=== PATIENT | female | born 1950 | race Caucasian/White ===

== ENCOUNTER 2017-02-02 23:06 | Inpatient (IN) | payer MEDICAID, OTHER ==
[~2017-02-02] VITALS: Ht 157.5 cm; Wt 102.3 kg
[2017-02-02 23:08] VITALS: Ht 157.5 cm; Wt 102.3 kg
[2017-02-02] MEDS ORDERED: SODIUM CHLORIDE 0.9% 1L BAG IV* STA (23:17)
[2017-02-02] MEDS ORDERED: CEFEPIME 2GM/50 ML (PMX) 50 ML IVPB STA (23:17)
[2017-02-03] VITALS (9 sets, daily range): BP systolic 126–154; BP diastolic 61–70; PULSE 57–74; RESP 16–21; TEMP 97.1
[2017-02-03] LABS: ADD SCAN DIFF NO
[2017-02-03 00:01] LABS: BASOPHILS % 0.2 % (0.0-2.0); EOSINOPHILS # 0.1 10^3/ul (0.0-0.5); EOSINOPHILS % 0.7 % (0.0-7.0); HEMATOCRIT 24.3 % (37.0-47.0); HEMOGLOBIN 7.3 g/dl (12.0-16.0); LYMPHOCYTES # 1.4 10^3/ul (0.8-2.9); LYMPHOCYTES % 6.8 % (15.0-51.0); MEAN CORPUSCULAR HEMOGLOBIN 31.6 pg (29.0-33.0); MEAN CORPUSCULAR VOLUME 105.2 fl (82.0-101.0); MEAN PLATELET VOLUME 8.9 fl (7.4-10.4); MONOCYTE # 0.9 10^3/ul (0.3-0.9); MONOCYTES % 4.3 % (0.0-11.0); NEUTROPHIL # 17.6 10^3/ul (1.6-7.5); NEUTROPHILS % 86.6 % (39.0-77.0); NUCLEATED RED BLOOD CELLS # 0.1 10^3/ul (0.0-0.0); NUCLEATED RED BLOOD CELLS% 0.3 /100WBC (0.0-0.0); PLATELET COUNT 647 10^3/UL (140-415); RED BLOOD COUNT 2.31 10^6/ul (4.20-5.40); RED CELL DISTRIBUTION WIDTH 15.5 % (11.5-14.5); WHITE BLOOD COUNT 20.3 10^3/ul (4.8-10.8)
[2017-02-03 00:17] LABS: INR 1.2; PROTIME 15.3 Sec (12.2-14.2); PT RATIO 1.2
[2017-02-03 00:18] LABS: PARTIAL THROMBOPLASTIN TIME 33.7 Sec (25.0-35.0)
[2017-02-03 00:19] LABS: CALCIUM 8.8 mg/dl (8.4-10.2); CREATININE 3.01 mg/dl (0.44-1.00); POTASSIUM 3.8 mmol/L (3.5-5.1)
[2017-02-03 00:20] LABS: ALBUMIN 3.3 g/dl (3.3-4.9); ALBUMIN/GLOBULIN RATIO 0.76; TOTAL PROTEIN 7.6 g/dl (6.1-8.1)
[2017-02-03 00:30] LABS: TROPONIN-I 0.017 ng/ml (0.00-0.12)
--- NOTE | 2017-02-03 01:02 | RADRPT ---
PROCEDURE: XR Chest. CLINICAL INDICATION: Cough. Sepsis. TECHNIQUE: Single frontal view. COMPARISON: None. FINDINGS: The lungs are clear. The heart is enlarged. There is no pleural effusion. There is no pneumothorax. IMPRESSION: 1. Cardiomegaly. 2. Clear lungs. RPTAT: QQ .Rell Chavez MD, MD Date Time Electronically viewed and signed by .Rell Chavez MD, MD on 02/03/2017 01:01 .R/
[2017-02-03 01:21] LABS: AADO2 Arterial 54.1 mmHg (7.0-24.0); Allen Test ACCEPTAB; Arterial Base Excess 6.7 mmol/L (-3.0-3); Arterial COHb 0.7 % (0.0-3.0); Arterial Fraction of Oxyhgb 95.2 % (93.0-99.0); Arterial HCO3 31.3 mmol/L (22.0-26.0); Arterial MetHb 0.4 % (0.0-1.5); Arterial Total Hemglobin 7.9 g/dl (12.0-18.0); MODE NASAL CANNULA
[2017-02-03] MEDS ORDERED: SOD CHLORIDE 0.9% 250 ML IV ONE (01:48)
[2017-02-03] MEDS ORDERED: VANCOMYCIN 1 GM (PMX) 250 ML IVPB SCH (02:00)
--- NOTE | 2017-02-03 02:11 | RADRPT ---
PROCEDURE: CT Brain without contrast. CLINICAL INDICATION: Visual disturbance. TECHNIQUE: A CT of the brain without contrast was performed utilizing axial sections from the skul l base through the vertex. The patient was scanned without intravenous contrast enhancement. Sagitta l and coronal reformatted images were obtained using the data from the axial images. Total exam DLP is 720.23 mGy-cm. CTDIvol is 45.01 mGy. One or more of the following dose reduction techniques were used: Automated exposure control, adjustment of the mA and/or kV according to patient size, use of iterative reconstruction technique. COMPARISON: None available. FINDINGS: There is normal vincent-white matter differentiation. There is enlargement of the ventricles and subarachnoid spaces consistent with atrophy. There is decreased attenuation of the periventricular white matter consistent with microangiopathic ischemic change. There is no intracranial hemorrhage or space-occupying lesion. There are vascular calcifications consistent with atherosclerosis. There is no skull fracture or lytic lesion. IMPRESSION: 1. Atrophy. 2. Microangiopathic ischemic change. 3. Atherosclerosis. 4. No intracranial hemorrhage. 5. Otherwise unremarkable noncontrast CT scan of the brain. RPTAT: QQ .Rell Chavez MD, Date Time Electronically viewed and signed by .Rell Chavez MD, on 02/03/2017 02:11 .R/
[2017-02-03 02:12] LABS: URINE BLOOD (Dip) POC 2+ (NEGATIVE)
[2017-02-03 02:25] LABS: RETICULOCYTE COUNT % 2.8 % (0.5-1.5)
[2017-02-03 02:37] LABS: IRON 16 ug/dl (35-150)
[2017-02-03 02:47] LABS: TOTAL IRON BINDING CAPACITY 148 ug/dl (241-421)
--- NOTE | 2017-02-03 02:53 | RADRPT ---
PROCEDURE: CT Abdomen and pelvis without contrast. CLINICAL INDICATION: Abdominal pain. TECHNIQUE: CT scan of the abdomen and pelvis was performed on a multi-detector high-resolution CT scanner. Contiguous axial images were obtained from the lung bases to the ischial tuberosities wit hout intravenous contrast. Coronal and sagittal reformatted images were also obtained. Images were reviewed on the PACS workstation. One or more of the following dose reduction techniques were used: - Automated exposure control. - Adjustment of the mA and/or kV according to patient size. - Use of iterative reconstruction technique. Exam CTD/vol = 21.47 mGy. Total exam DLP = 1251.97 mGy-cm. COMPARISON: None. FINDINGS: Evaluation of the lung bases demonstrates mild bibasilar atelectasis. The heart is mildly enlarged. There is mild pulmonary venous congestion. There is a calcified granuloma within the right lower lobe. Abdomen: The liver is normal in size. There is no focal mass or dilatation of the biliary tree. T he gallbladder is not distended. There is mild gallbladder wall thickening. The spleen, pancreas a nd bilateral adrenal glands are within normal limits. Bilateral kidneys are normal in size with no contour deforming mass identified. There are renal vascular calcifications bilaterally. There is n o radiopaque ureteral calculus identified. There is no hydronephrosis or hydroureter. There is charanjit ateral perinephric stranding. There is no retroperitoneal adenopathy. The abdominal aorta is of no rmal caliber with scattered atherosclerotic calcifications. There is no abnormal bowel wall thickening or distension. There is no bowel obstruction or free air . A normal appendix is identified. There is no diverticulosis or diverticulitis. There is no asci gay. Pelvis: The bladder is unremarkable. The uterus and adnexa are within normal limits. There is mil d presacral stranding. There is no significant pelvic adenopathy or free fluid. There is subcutaneo us stranding consistent with anasarca. Evaluation of the osseous structures demonstrates no suspicious lytic or blastic lesion. IMPRESSION: Mild nonspecific gallbladder wall thickening. Clinical correlation is recommended and further evalu ation can be made by ultrasound. Mild cardiomegaly and pulmonary venous congestion. Mild bibasilar atelectasis. Extensive vascular calcifications reflective of atherosclerosis. Mild nonspecific presacral stranding. Anasarca. .Eyal Cruz MD, MD Date Time Electronically viewed and signed by .Eyal Cruz MD, MD on 02/03/2017 02:53 .T/
--- NOTE | 2017-02-03 05:46 | ERA ---
ER Documentation Chief Complaint Date/Time DATE: 02/03/17 TIME: 05:35 Chief Complaint BIBA RA81, ALOC since 2100 after dialysis HPI This 66-year-old female sent for being more altered than normal, reportedly after dialysis. Patient states that she had dialysis yesterday with no complications. She does state that she feels short of breath since the day before yesterday but does not have chest pain she does have pain along her left foot where she has a chronic wound. States that she does not feel confused. She does feel more tired and weaker than usual. She denies any focal areas of weakness. Shortly after her arrival of the doctor involved with the [facility] facility called me and stated that the reason the patient is was sent because she had decreased vision. I spoke with the patient and her who state that she has had blurry vision for a long time now and was told it was secondary to her diabetes. She states this is been going on for weeks. ROS All systems reviewed and are negative except as per history of present illness. Allergies Allergies: Uncoded Allergies: PENICILLIN (Allergy, Intermediate, rash, 02/03/17) PMhx/Soc History of Surgery: Yes (R upper arm AVF placement, RBKA) Anesthesia Reaction: No (AUGUSTIN) Hx Neurological Disorder: Yes (diabetic neuropathy) Hx Respiratory Disorders: No Hx Cardiac Disorders: Yes (CHF, HTN) Hx Psychiatric Problems: No Hx Miscellaneous Medical Probl: Yes (ESRD, on dialysis) Hx Alcohol Use: No Hx Substance Use: No Hx Tobacco Use: No Smoking Status: Never smoker Physical Exam Vitals Vital Signs Date Time Temp Pulse Resp B/P Pulse Ox O2 Delivery O2 Flow Rate FiO2 02/03/17 05:00 61 16 140/56 93 Nasal Cannula 2.0 02/03/17 04:00 62 17 139/48 98 Nasal Cannula 3.0 02/03/17 00:30 77 20 156/46 97 Room Air 02/02/17 23:08 101.7 77 18 131/63 86 Physical Exam Const: [] Head: Atraumatic Eyes: Normal Conjunctiva ENT: Normal External Ears, Nose and Mouth. Neck: Full range of motion..~ No meningismus. Resp: Clear to auscultation bilaterally Cardio: Regular rate and rhythm, no murmurs Abd: Soft, non tender, non distended. Normal bowel sounds Skin: No petechiae or rashes Back: No midline or flank tenderness Ext: No cyanosis, or edema Neur: Awake and alert Psych: Normal Mood and Affect Result Diagram: 02/02/17 2335 02/02/17 2335 Results 24 hrs Laboratory Tests Test 02/02/17 23:35 02/03/17 01:02 02/03/17 02:13 02/03/17 02:30 White Blood Count 20.310^3/ul Red Blood Count 2.3110^6/ul Hemoglobin 7.3g/dl Hematocrit 24.3% Mean Corpuscular Volume 105.2fl Mean Corpuscular Hemoglobin 31.6pg Mean Corpuscular Hemoglobin Concent 30.0g/dl Red Cell Distribution Width 15.5% Platelet Count 85976^3/UL Mean Platelet Volume 8.9fl Neutrophils % 86.6% Lymphocytes % 6.8% Monocytes % 4.3% Eosinophils % 0.7% Basophils % 0.2% Nucleated Red Blood Cells % 0.3/100WBC Neutrophils # 17.610^3/ul Lymphocytes # 1.410^3/ul Monocytes # 0.910^3/ul Eosinophils # 0.110^3/ul Basophils # 0.010^3/ul Nucleated Red Blood Cells # 0.110^3/ul Absolute Reticulocyte Count 0.064X10^6 Percent Reticulocyte Count 2.8% Prothrombin Time 15.3Sec Prothrombin Time Ratio 1.2 INR International Normalized Ratio 1.20 Activated Partial Thromboplast Time 33.7Sec Sodium Level 136mmol/L Potassium Level 3.8mmol/L Chloride Level 94mmol/L Carbon Dioxide Level 30mmol/L Anion Gap 16 Blood Urea Nitrogen 33mg/dl Creatinine 3.01mg/dl Glucose Level 298mg/dl Lactic Acid Level 1.6mmol/L 1.4mmol/L Calcium Level 8.8mg/dl Iron Level 16ug/dl Total Iron Binding Capacity 148ug/dl Percent Iron Saturation 11% SAT Ferritin 1160.0ng/ml Total Bilirubin 0.0mg/dl Direct Bilirubin 0.00mg/dl Indirect Bilirubin 0.0mg/dl Aspartate Amino Transf (AST/SGOT) 19IU/L Alanine Aminotransferase (ALT/SGPT) 15IU/L Alkaline Phosphatase 260IU/L Troponin I 0.017ng/ml B-Type Natriuretic Peptide 403795RM/ML Total Protein 7.6g/dl Albumin 3.3g/dl Globulin 4.30g/dl Albumin/Globulin Ratio 0.76 Blood Gas Specimen Source Blood arterial Arterial Blood Date Drawn 02/03/2017 1:15:17 AM Arterial Blood pH (Temp corrected) 7.457 Arterial Blood pCO2 (Temp correct) 45.3mmhg Arterial Blood pO2 (Temp corrected) 84.8mmHG Arterial Blood HCO3 31.3mmol/L Arterial Blood Base Excess 6.7mmol/L Arterial Blood Oxygen Saturation 96.3mmHG Ron Test ACCEPTAB Arterial Blood Gas Puncture Site Right Radial Arterial Blood Carboxyhemoglobin 0.7% Arterial Blood Methemoglobin 0.4% Blood Gas A-a O2 Differential 54.1mmHg Oxyhemoglobin Percent 95.2% Total Hemoglobin 7.9g/dl Blood Gas Temperature 37.0C Blood Gas Modality NASAL CANNULA FiO2 27.0% Blood Gas Critical Value Read Back Taina PIERRE D.O Blood Gas Notified Whom MM Blood Gas Notified Time 02/03/2017 1:21:14 AM Bedside Urine pH (LAB) 5.5 Bedside Urine Protein (LAB) 2+ Bedside Urine Glucose (UA) Negative Bedside Urine Ketones (LAB) Trace Bedside Urine Blood 2+ Bedside Urine Nitrite (LAB) Negative Bedside Urine Leukocyte Esterase (L Trace Test 02/03/17 03:13 Lactic Acid Level 1.5mmol/L Current Medications Medications (Trade) Dose Ordered Sig/Ariel Route PRN Reason Start Time Stop Time Status Last Admin Dose Admin Sodium Chloride 3170 ml 3,170 ml BOLUS OVER 2 HOURS STAT IV* 02/02/17 23:17 02/02/17 23:19 DC 02/03/17 01:11 Cefepime HCl 50 ml @ 100 mls/hr ONCE STAT IVPB 02/02/17 23:17 02/02/17 23:46 DC 02/03/17 01:11 Vancomycin HCl 250 ml @ 125 mls/hr ONCE IVPB 02/03/17 02:00 02/03/17 03:59 DC 02/03/17 02:02 Sodium Chloride (NS) 250 ml @ 0 mls/hr Q0M ONCE IV 02/03/17 01:48 02/03/17 01:55 DC 02/03/17 01:48 Morphine Sulfate (morphine) 2 mg ONCE ONCE IV 02/03/17 06:00 02/03/17 06:01 DC 02/03/17 05:50 Ondansetron HCl (Zofran Inj) 4 mg ER BRIDGE PRN IV NAUSEA AND/OR VOMITING 02/03/17 06:30 02/04/17 06:29 Acetaminophen (Tylenol Tab) 650 mg ER BRIDGE PRN PO MILD PAIN/FEVER 02/03/17 06:30 02/04/17 06:29 Procedures/MDM Sepsis secondary to cellulitis from left lower extremity foot wound. Patient is also anemic requiring transfusion but denies any sources of GI bleeding or dark stools. She is also hypoxic on arrival at 86% but responded well to oxygen therapy. Currently there is no pneumonia on chest x-ray. If there is an x-ray negative lung infection she is covered with cefepime and vancomycin. She began to receive an IV fluid bolus of 30 cc/kg. I start this fdc when when her hemoglobin returned and she was in need of transfusion as she would likely become even more fluid overloaded if she would receive the full bolus of greater than 3 L. Blood will cause great enough volume expansion where 3 L of fluid would harm this patient in spite of sepsis criteria is deleterious to the patient's condition. Head CT was obtained to look for any cerebral cause or mass possibly causing the patient's blurred vision 4 weeks. None was found. CT abdomen pelvis showed only a mildly distended gallbladder. She has no right upper quadrant tenderness or pain currently. He was given 2 mg of morphine for her left lower extremity pain. Patient will be admitted to telemetry however her insurance requires her to be transferred to [place]. Admitting and registration are unable to reach the insurance company on multiple calls for a time long enough that they say the patient will now go to panel doctor. I spoke with Dr. Schwab will be admitting the patient to telemetry. EKG interpretation: Normal sinus rhythm rate of 79, normal axis, no ST or T- wave changes concerning for acute ischemia lunchroom monitor interpretation: Normal sinus rhythm without arrhythmia Chest x-ray interpretation: I see no acute process, no pulmonary edema, no pneumothorax, no infiltrates, no fractures CT abdomen pelvis interpretation: I see no acute process, I see no abnormal fat stranding, no obstruction, no free air, no fractures. Radiologist mentions mild gallbladder wall thickening. CT head interpretation :I see no acute process, no hemorrhage, no mass-effect no midline shift, no fracture Departure Diagnosis: Primary Impression: Sepsis due to cellulitis Additional Impressions: Left leg cellulitis Hypoxia Symptomatic anemia Hyperglycemia due to type 2 diabetes mellitus Condition: Serious JANINA PIERRE DO February 03, 2017 05:46
[2017-02-03] MEDS ORDERED: morphine 2 MG INJ IV ONE (06:00)
[2017-02-03] MEDS ORDERED: ONDANSETRON 4 MG INJ IV PRN (06:30)
[2017-02-03] MEDS ORDERED: ACETAMINOPHEN 325 MG TAB PO PRN ×2 (06:30→09:30)
[2017-02-03] MEDS ORDERED: VANCOMYCIN IV PER PHARMACY XX SCH (09:30)
[2017-02-03] MEDS ORDERED: HYDROCODONE/APAP (5/325) TAB PO PRN (09:30)
[2017-02-03] MEDS ORDERED: LORAZEPAM 2 MG INJ IV PRN (09:30)
[2017-02-03] MEDS ORDERED: NACL 0.9% 3 ML SYG IV SCH (09:30)
[2017-02-03] MEDS ORDERED: GLUCOSE GEL 15 GRAM TUBE BUCCAL PRN (10:00)
[2017-02-03] MEDS ORDERED: GLUCAGON 1 MG INJ IM PRN (10:00)
[2017-02-03] MEDS ORDERED: GLUCOSE GEL 15 GRAM TUBE PO PRN ×2 (10:00)
[2017-02-03] MEDS ORDERED: DEXTROSE 50% 50 ML SYRINGE IV PRN ×2 (10:00)
[2017-02-03] MEDS ORDERED: VANCOMYCIN 1 GM in NS 250 ML IVPB SCH (10:30)
--- NOTE | 2017-02-03 10:35 | CONS ---
Date/Time of Note Date/Time of Note DATE: 02/03/17 TIME: 10:35 Assessment/Plan Assessment/Plan Chief Complaint/Hosp Course ID PROGRESS NOTE ABX DAY # 2=> Vanco IV + Cefepime HOSPITAL COURSE * 66 yo F w/PMHx DMII w/ polyneuropathies, HTN, HLD, ESRD-HD, PAD, RLEXT-BKA, admit from HD unit 02/02/17 with AMS, fevers 101.7, leukocytosis WBC @ 20.3, with acute on chronic LLEXT cellulitis with pain, in addition to acute SOB. * UA (+)Trace LeukEsterase w/hematuria 2+ * BNP elevated 128,000 in setting S.Creatinine 3.0 * Started on Vanco + Cefepime after BCx & urine obtained DIAGNOSTIC IMAGING * 02/03/17 CXR: IMPRESSION:1. Cardiomegaly. 2. Clear lungs. * 02/03/17: CT Brain: IMPRESSION:1. Atrophy.2. Microangiopathic ischemic change.3. Atherosclerosis.4. No intracranial hemorrhage.5. Otherwise unremarkable noncontrast CT scan of the brain. * 02/03/17 CT ABD: IMPRESSION: * Mild nonspecific gallbladder wall thickening. Clinical correlation is recommended and further evaluation can be made by ultrasound. * Mild cardiomegaly and pulmonary venous congestion. * Mild bibasilar atelectasis. * Extensive vascular calcifications reflective of atherosclerosis. * Mild nonspecific presacral stranding. * Anasarca. PHYSICAL EXAMINATION: GENERAL: Morbid obese Lithuanian speaking F, lethargic, awakens to painful stimuli and c/o left foot pain HEENT: Unremarkable NECK: Trach-> midline CHEST: Equal chest rise bilaterally, supplemental O2, CTA anterior ABDOMEN: Soft, obese EXTREMITIES: R-BKA< Left foot w/chronic venous stasis hyperpigmentation changes , foot ulcer, toe ulcer, hyperkeratotic nails SKIN: Warm, dry ID ASSESSMENT: 66 yo F w/PMHx HTN, HLD, DMII w/polyneuropathies, PAD, hx of RLEXT BKA, ESRD-HD admitted with: 1. Sepsis criteria on admission = fevers 101.7, AMS, Leukocytosis 20.3 + acute LLEXT cellulitis 2. LLEXT cellulitis w/chronic left foot ulcer, toe ulcer, necrotic heel ulcer 3. Anemia w/FeSo4 deficiency 4. DM II w/painful peripheral neuropathy 5. PAD 6 Mild respiratory distress related to fluid overloaded state: (+)anasarca w/ mild pulm edema 7. ESRD -> HD via AVF 8. Possible early UTI w/trace leukocytosis on UA. 2+ RBCs ABX ALLERGIES: NKDA CURRENT ABX: # 2=> Vanco IV + Cefepime ID RECOMMENDATIONS: 1. Continue current ABX . 2. Left foot X-ray r/o Osteomyelitis 3. F/U on micro pending 4. MRSA Nares screen ordered * Thank you, will follow. . Problems: Consultation Date/Type/Reason Admit Date/Time February 03, 2017 at 06:21 Initial Consult Date Exam/Review of Systems Vital Signs Vitals Vital Signs Date Time Temp Pulse Resp B/P Pulse Ox O2 Delivery O2 Flow Rate FiO2 02/03/17 09:18 57 02/03/17 09:03 97.9 21 126/61 99 02/03/17 07:41 Nasal Cannula 2.0 Intake and Output 02/02/17 02/02/17 02/03/17 15:00 23:00 07:00 Intake Total 965 ml Balance 965 ml Results Result Diagram: 02/02/17 2335 02/02/17 2335 Results 24 hrs Laboratory Tests Test 02/02/17 23:35 02/03/17 01:02 02/03/17 02:13 02/03/17 02:30 White Blood Count 20.3 H Red Blood Count 2.31 L Hemoglobin 7.3 L Hematocrit 24.3 L Mean Corpuscular Volume 105.2 H Mean Corpuscular Hemoglobin 31.6 Mean Corpuscular Hemoglobin Concent 30.0 L Red Cell Distribution Width 15.5 H Platelet Count 647 H Mean Platelet Volume 8.9 Neutrophils % 86.6 H Lymphocytes % 6.8 L Monocytes % 4.3 Eosinophils % 0.7 Basophils % 0.2 Nucleated Red Blood Cells % 0.3 H Neutrophils # 17.6 H Lymphocytes # 1.4 Monocytes # 0.9 Eosinophils # 0.1 Basophils # 0.0 Nucleated Red Blood Cells # 0.1 H Absolute Reticulocyte Count 0.064 Percent Reticulocyte Count 2.8 H Prothrombin Time 15.3 H Prothrombin Time Ratio 1.2 INR International Normalized Ratio 1.20 Activated Partial Thromboplast Time 33.7 Sodium Level 136 Potassium Level 3.8 Chloride Level 94 L Carbon Dioxide Level 30 Anion Gap 16 Blood Urea Nitrogen 33 H Creatinine 3.01 H Glucose Level 298 H Lactic Acid Level 1.6 1.4 Calcium Level 8.8 Iron Level 16 L Total Iron Binding Capacity 148 L Percent Iron Saturation 11 L Ferritin 1160.0 H Total Bilirubin 0.0 L Direct Bilirubin 0.00 Indirect Bilirubin 0.0 Aspartate Amino Transf (AST/SGOT) 19 Alanine Aminotransferase (ALT/SGPT) 15 Alkaline Phosphatase 260 H Troponin I 0.017 B-Type Natriuretic Peptide 472764 H Total Protein 7.6 Albumin 3.3 Globulin 4.30 H Albumin/Globulin Ratio 0.76 Blood Gas Specimen Source Blood arterial Arterial Blood Date Drawn 02/03/2017 1:15:17 AM Arterial Blood pH (Temp corrected) 7.457 H Arterial Blood pCO2 (Temp correct) 45.3 H Arterial Blood pO2 (Temp corrected) 84.8 Arterial Blood HCO3 31.3 H Arterial Blood Base Excess 6.7 H Arterial Blood Oxygen Saturation 96.3 Ron Test ACCEPTAB Arterial Blood Gas Puncture Site Right Radial Arterial Blood Carboxyhemoglobin 0.7 Arterial Blood Methemoglobin 0.4 Blood Gas A-a O2 Differential 54.1 H Oxyhemoglobin Percent 95.2 Total Hemoglobin 7.9 L Blood Gas Temperature 37.0 Blood Gas Modality NASAL CANNULA FiO2 27.0 Blood Gas Critical Value Read Back Taina PIERRE D.O Blood Gas Notified Whom MM Blood Gas Notified Time 02/03/2017 1:21:14 AM Bedside Urine pH (LAB) 5.5 Bedside Urine Protein (LAB) 2+ H Bedside Urine Glucose (UA) Negative Bedside Urine Ketones (LAB) Trace H Bedside Urine Blood 2+ H Bedside Urine Nitrite (LAB) Negative Bedside Urine Leukocyte Esterase (L Trace H Test 02/03/17 03:13 Lactic Acid Level 1.5 Medications Medications Current Medications Lorazepam (Ativan) 0.5 mg Q6H PRN IV ANXIETY; Start 02/03/17 at 09:30 Acetaminophen (Tylenol Tab) 650 mg Q6H PRN PO PAIN LEVEL 1-3 OR FEVER; Start at 09:30 Acetaminophen/ Hydrocodone Bitart ([place] (5/325)) 1 tab Q6H PRN PO PAIN LEVEL 4 -6; Start 02/03/17 at 09:30 Morphine Sulfate (morphine) 2 mg Q4H PRN IV PAIN LEVEL 7-10; Start 02/03/17 at 09:30 Famotidine (Pepcid) 20 mg Q24H PO ; Start 02/03/17 at 21:00 Hydralazine HCl 10 mg 10 mg Q6H PRN IV SBP>160; Start 02/03/17 at 09:30 Cefepime HCl (Maxipime 1gm/50 ml (Pmx)) 50 ml @ 100 mls/hr Q24H IVPB ; Start at 21:00 Insulin Glargine (Lantus) 21 unit DAILY@20 SC ; Start 02/03/17 at 20:00 Diagnostic Test (Pha) (Accu-Chek) 1 ea 02 XX ; Start 02/04/17 at 02:00 Miscellaneous Information 1 ea NOTE XX ; Start 02/03/17 at 10:00 Glucose (Glutose) 15 gm Q15M PRN PO DECREASED GLUCOSE; Start 02/03/17 at 10:00 Glucose (Glutose) 22.5 gm Q15M PRN PO DECREASED GLUCOSE; Start 02/03/17 at 10: 00 Dextrose (D50w Syringe) 25 ml Q15M PRN IV DECREASED GLUCOSE; Start 02/03/17 at 10:00 Dextrose (D50w Syringe) 50 ml Q15M PRN IV DECREASED GLUCOSE; Start 02/03/17 at 10:00 Glucagon (Glucagen) 1 mg Q15M PRN IM DECREASED GLUCOSE; Start 02/03/17 at 10:00 Glucose 15 gm 15 gm Q15M PRN BUCCAL DECREASED GLUCOSE; Start 02/03/17 at 10:00 Vancomycin HCl (Vancocin) 250 ml @ 125 mls/hr NOW IVPB ; Start 02/03/17 at 10: 30; Stop 02/03/17 at 18:00 JOHNATHAN HASKINS NP February 03, 2017 10:35
[2017-02-03] MEDS ORDERED: SEVE800T10 PO (11:52)
[2017-02-03] MEDS ORDERED: SIMV20TA2 PO (11:53)
[2017-02-03] MEDS ORDERED: BISA10SU55 RC ×2 (11:59)
[2017-02-03] MEDS ORDERED: HYDR-3672 PO (11:59)
[2017-02-03] MEDS ORDERED: ACET-141 PO (11:59)
[2017-02-03] MEDS ORDERED: HYDR-3010 PO (11:59)
[2017-02-03] MEDS ORDERED: CLOP75TA28 PO (12:16)
[2017-02-03] MEDS ORDERED: HYDR-3671 PO (12:16)
[2017-02-03] MEDS ORDERED: NOVO3I SC (12:16)
[2017-02-03] MEDS ORDERED: ISON300T72 PO (12:16)
[2017-02-03] MEDS ORDERED: CLON-379 PO (12:16)
[2017-02-03] MEDS ORDERED: AMLO-147 PO (12:16)
[2017-02-03] MEDS ORDERED: PANT40TA4 PO (12:16)
[2017-02-03] MEDS ORDERED: DOCU-159 PO (12:16)
[2017-02-03] MEDS ORDERED: PYRI50TA80 PO (12:16)
[2017-02-03] MEDS ORDERED: BISA-57 PO (12:16)
[2017-02-03] MEDS ORDERED: FOLI-49 PO (12:16)
[2017-02-03] MEDS ORDERED: NEPH PO (12:16)
[2017-02-03] MEDS ORDERED: HEP30MU30 SUBCUTANE (12:16)
[2017-02-03] MEDS ORDERED: CARV6.2579 PO (12:16)
[2017-02-03] MEDS ORDERED: LOSA100T7 PO (12:16)
[2017-02-03] MEDS ORDERED: POLY17PO6 PO (12:16)
[2017-02-03] MEDS: LOSARTAN 50 MG TAB PO SCH (12:47)
[2017-02-03] MEDS: SEVELAMER 800 MG TAB PO SCH ×2 (12:47→18:10)
[2017-02-03] MEDS: ISONIAZID 300 MG TAB PO SCH (12:48)
[2017-02-03] MEDS: INSULIN ASPART [NOVOLOG] 3 ML PEN SC SCH ×5 (12:55→20:13)
[2017-02-03] MEDS: SOD FERRIC GLUC COMPLX 125 MG in SOD CHLORIDE 0.9% 100 ML IVPB SCH (13:40)
[2017-02-03 14:49] LABS: ANION GAP 16 (8-16); BLOOD UREA NITROGEN 40 mg/dl (7-20); CALCIUM 8.7 mg/dl (8.4-10.2); CARBON DIOXIDE 28 mmol/L (21-31); CHLORIDE 96 mmol/L (97-110); CREATININE 3.55 mg/dl (0.44-1.00); GLUCOSE 184 mg/dl (70-220); MAGNESIUM 1.9 mg/dl (1.7-2.5); POTASSIUM 3.8 mmol/L (3.5-5.1); SODIUM 136 mmol/L (135-144)
[2017-02-03 14:53] LABS: CREATINE KINASE < 20 IU/L (23-200)
--- NOTE | 2017-02-03 14:54 | HP ---
DATE OF ADMISSION: 02/03/2017 TIME OF EVALUATION: 9 a.m. REASON FOR ADMISSION: Altered level of consciousness. Worsening left lower extremity wound. CONSULTATIONS: 1. Dr. Rafael Friedman, Nephrology. 2. Dr. Mason Wheeler, Infectious Disease. 3. Dr. Magdaleno Ortiz, Podiatry. HISTORY OF PRESENT ILLNESS: This is a 66-year-old group home resident who is bedridden with multiple comorbidities including end-stage renal disease on hemodialysis, diabetes mellitus, congestive heart failure, essential hypertension, and left lower extremity nonhealing diabetic wound who was brought to the emergency room because of altered level of consciousness. The patient got hemodialysis as scheduled on Saturday. The patient was feeling short of breath towards the evening of 02/02/2017. The patient was also hallucinating as per the patient's family who was at the bedside. The patient is not the best historian. Hence, I was unable to elicit further information from the patient. All the information was obtained by review of the patient's chart as well as by talking to the patient's family who was at the bedside. In the emergency room, the patient was noticed to have significant leukocytosis with a WBC of 20.3. The patient was also noticed to be anemic with a hemoglobin and hematocrit of 7.3 and 24.2 respectively. The patient underwent a chest x-ray that showed cardiomegaly. The patient's CT scan of the chest showed cardiomegaly and pulmonary venous congestion. The patient's brain CT scan was negative for any acute intracranial findings. The patient underwent a blood gas analysis in the emergency room that showed no significant hypoxia. The patient was treated with IV vancomycin and IV cefepime in the emergency room. The patient was transfused with 2 units of PRBC. PAST MEDICAL HISTORY: End-stage renal disease on hemodialysis, diabetes mellitus, congestive heart failure, essential hypertension. Left lower extremity nonhealing diabetic foot wound. PAST SURGICAL HISTORY: Left upper extremity AV fistula placement. Right below- knee amputation. LONGTERM MEDICATIONS: 1. Heparin 5000 units subcutaneous b.i.d. 2. Insulin aspart per sliding scale. 3. Isoniazid p.o. daily. 4. Losartan 100 mg p.o. daily. 5. Nephrovite 1 tablet p.o. daily. 6. Protonix 40 mg p.o. p.r.n. GERD. 7. MiraLax 17 grams p.o. constipation b.i.d. 8. Renagel 3200 mg p.o. t.i.d. with meals. 9. Simvastatin 5 mg p.o. at bedtime. 10. Dulcolax 5 mg p.o. daily p.r.n. constipation. 11. Hydralazine 50 mg p.o. p.r.n. for SBP greater than 160 mmHg. 12. Benadryl one tablet p.o. p.r.n. itching. 13. Hydralazine 25 mg p.o. t.i.d. ALLERGIES: PENICILLIN. SOCIAL HISTORY: The patient lives in a alf facility. No recent history of tobacco, alcohol or illicit drug use. The patient is more or less bedridden. REVIEW OF SYSTEMS: Negative other than what is mentioned in the history of present illness. PHYSICAL EXAMINATION: VITAL SIGNS: Temperature 97.1, pulse is 99, pulse rate 57, respiratory rate 21 , blood pressure 126/60, oxygen saturation 99% on low flow O2. GENERAL: This is an obese female lying in bed in no apparent distress. HEENT: Head normocephalic and atraumatic. Eyes: Anicteric sclerae. Conjunctivae clear. ENT: Nasal septum is midline. Oral mucosa is dry. NECK: Supple. No JVD noticed. RESPIRATORY: Bilaterally diminished breath sounds. No adventitious breath sounds heard. No use of accessory muscles of respiration. CARDIAC: Regular rate and rhythm. S1 and S2 heard. ABDOMEN: Soft, nontender and nondistended. Bowel sounds hypoactive in all 4 quadrants. GENITOURINARY: Deferred. EXTREMITIES: Left foot wound with dressings on the left foot. Left toes onychomycosis. Right below-knee amputation. NEUROLOGIC: The patient is awake, alert and oriented x1. SKIN: Multiple skin lesions. Scaly with dry scabs at different stages of healing. LABORATORY AND DIAGNOSTIC DATA: WBC 20.3, hemoglobin 7.3, hematocrit 24.3, platelet count 647. Sodium 136, potassium 3.8, chloride 94, carbon dioxide 30, anion gap 16, BUN 33, creatinine 3.0, glucose 209, calcium 8.8, alkaline phosphatase 260, troponin I 0.017. BNP 142761. PT 15.3, INR 1.03, PTT 33.7. Blood gas that was done on low flow O2, pH 7.457, pCO2 of 45.3, pO2 84.8, bicarbonate 31.3 oxygen saturation 96.3, base excess 6.7. Urinalysis: Urine protein 2+, urine leukocyte esterase trace, urine nitrate negative. IMPRESSION: This is a 66-year-old female who is a group home resident with multiple comorbidities who was brought to the emergency room with multiple complaints who was found evidence of sepsis, most probably secondary to underlying left foot infected wound, who will be admitted here for further treatment and evaluation. ASSESSMENT AND PLAN: 1. Sepsis, most probably secondary to underlying left foot infected wound. No evidence of septic shock. The patient will be started on empiric antibiotics. Olivarez cultures will be obtained. An infectious disease consult will be obtained. 2. End-stage renal disease on hemodialysis. The patient will be followed by nephrology. The patient most probably requires hemodialysis today since the patient got 2 units of PRBC for her underlying anemia. 3. Macrocytic anemia. Symptomatic. No evidence of any acute blood loss. The patient was already transfused with 2 units of PRBC. Stool for OB will be obtained. The patient's iron panel showing iron deficiency. The patient will be started on iron supplements. 4. Type 2 diabetes. The patient will be started on sliding scale insulin along with basal insulin and Lantus insulin. 5. Congestive heart failure. The patient will be continued on her cardiac medications. A 2D echocardiogram will be obtained to evaluate left ventricular ejection fraction and evaluate for any wall motion abnormalities. 6. Dyslipidemia. The patient will be started on statins. 7. Multiple skin lesions. Etiology unclear. Wound care consult will be ordered. 8. Acute encephalopathy. Most probably toxic metabolic in origin provided to underlying sepsis. We will monitor. Brain CT scan negative for any acute intracranial findings. Plan. The patient will be admitted to inpatient telemetry floor. The patient will be started on a renal, carbohydrate controlled diet. The patient will be started on DVT prophylaxis with left lower extremity SCDs. Chemical DVT prophylaxis will be avoided because of underlying anemia. The patient will remain a FULL CODE. Activities will be bed rest. The rest of the patient's management will be based on the clinical course, the results of diagnostic studies, and inputs from consultants. Based on the patient's clinical presentation, she most probably requires more than 2 midnights' stay for further management and evaluation of her clinical presentation. The case and management of this patient was fully discussed with Dr. Ortega. GENTRY ORTEGA MD, AM/CELESTINO Conf#: [id number] DID#: [id number] MTDD
[2017-02-03 15:02] LABS: CK-MB 0.37 ng/ml (0.0-2.4); TROPONIN-I 0.013 ng/ml (0.00-0.12)
[2017-02-03] MEDS ORDERED: COLLAGENASE 30 GM TUBE TOP ONE (16:00)
--- NOTE | 2017-02-03 17:29 | RADRPT ---
PROCEDURE: XR Left Foot. CLINICAL INDICATION: Diabetes. Left foot ulcer. Left foot pain. TECHNIQUE: Three views. Frontal, lateral, and oblique. COMPARISON: None. FINDINGS: There is no fracture or dislocation. Extensive vascular calcifications are present consistent with atherosclerosis. There are posterior and plantar calcaneal spurs. There is no lytic or blastic lesion. There is no radiopaque foreign body. IMPRESSION: 1. Atherosclerosis. 2. Calcaneal spurs. 3. No lytic lesion to suggest osteomyelitis. RPTAT: QQ .Rell Chavez MD, MD Date Time Electronically viewed and signed by .Rell Chavez MD, MD on 02/03/2017 17:29 .R/
--- NOTE | 2017-02-03 17:30 | CONS ---
DATE OF ADMISSION: 02/03/2017 DATE OF CONSULTATION: 02/03/2017 REFERRING PHYSICIAN: Fuentes Escoto NP REASON FOR CONSULTATION: Left heel gangrene, sepsis. HISTORY OF PRESENT ILLNESS: This is 66-year-old female with multiple comorbidities, upon admissio n, noted to have an infected left heel ulceration with gangrene. The patient's comorbidities includ ing: Diabetes, end-stage renal disease on hemodialysis, CHF, hypertension. The patient noted to siddiqui ve altered mental status and admitted through the emergency room with a WBC of 20.3. The patient is also status post transfusion due to acute anemia. PAST MEDICAL HISTORY: 1. Diabetes with neuropathy. 2. Right below knee amputation. 3. End-stage renal disease on hemodialysis 4. Hypertension. PAST SURGICAL HISTORY: Left AV fistula, right below knee amputation. MEDICATIONS: 1. Heparin 5000 units b.i.d. 2. Insulin sliding scale. 3. Isoniazid p.o. daily. 4. Losartan 100 mg p.o. daily. 5. Nephro-Emmanuel 1 tablet p.o. daily. 6. Protonix 40 mg p.o. daily. 7. MiraLax 17 grams p.o. constipation b.i.d. 8. Renagel 3200 mg p.o. t.i.d. with meals. 9. Simvastatin 5 mg p.o. daily. 10. Dulcolax 5 mg p.o. p.r.n. 11. Hydralazine 50 mg p.o. p.r.n. 12. Benadryl 1 tab p.o. p.r.n. itching. 13. Hydralazine 25 mg p.o. t.i.d. 14. Vancomycin. 15. Cefepime. ALLERGIES: PENICILLIN. SOCIAL HISTORY: Patient lives in a group home facility. Unable to obtain history. PHYSICAL EXAMINATION: VITAL SIGNS: Temperature 98, pulse 65, respiratory 18, blood pressure 149/65. GENERAL: Patient lying supine, female without distress. The patient is sleepy and unable to obtain history. Height is normocephalic. Trachea is midline. The patient with nasal O2. EXTREMITIES: Right below knee amputation, has multiple excoriations, on photos, the patient has a p ressure sore on the sacrum, left foot with cellulitis. There is unstageable wound on the plantar la teral aspect with gangrenous changes, slight malodor, deformity of nails. Mycotic changes, hammerto e deformities present. There is ulceration on the right great toe with full thickness necrosis. Th e patient has a 1+ DP, PT nonpalpable and popliteal 1+. LABORATORIES: WBC 20.3, hemoglobin 7.3, hematocrit 24.3, platelets 647, sodium 136, potassium 3.8, chloride 94, CO2 30, BUN 33, creatinine 3, glucose 209. ASSESSMENT: 1. Cellulitis, left foot. 2. Sepsis. 3. End-stage renal disease on hemodialysis. 4. Anemia. 5. Diabetes type 2 with neuropathy. PLAN: The patient seen and evaluated. X-rays pending. Obtain additional labs, sed rate ordered, a rterial noninvasives. Nursing instructions provided, coordination of care. Consulted Dr. Mccormick for possible angiography. Due to presence of infection, obtained consent for debridement. Patient at t his time unable to provide consent, obtained from family. The patient at high risk for further infe ction and a below knee amputation. Dictated By: KRIS RODRIGUEZ/CELESTINO Conf#: [id number] DID#: [id number]
[2017-02-03] MEDS: FLUOCINONIDE 0.05%/EMOLL 15 GM CR TOP SCH (18:10)
[2017-02-03 18:44] LABS: CREATINE KINASE < 20 IU/L (23-200)
[2017-02-03 18:45] LABS: TROPONIN-I 0.014 ng/ml (0.00-0.12)
--- NOTE | 2017-02-03 19:43 | RADRPT ---
PROCEDURE: XR Left Foot. CLINICAL INDICATION: Left foot pain. TECHNIQUE: Three views. Frontal, lateral, and oblique. COMPARISON: 02/03/2017. FINDINGS: There is no fracture or dislocation. Vascular calcifications are present consistent with atherosclerosis. There is diffuse osteopenia. There are lateral subluxations of the second, third, fourth metatarsal phalangeal joints. There are degenerative changes of the first metatarsal phalangeal joint with joint space narrowing, osteophyt es, and joint space narrowing. There is also hallux valgus. There are calcaneal spurs. There is no lytic or blastic lesion. There is no radiopaque foreign body. IMPRESSION: 1. Atherosclerosis. 2. Diffuse osteopenia. 3. Lateral subluxations of the second, third, fourth metatarsal phalangeal joints. 4. Degenerative changes of the first metatarsal phalangeal joint. Hallux valgus. 5. Calcaneal spurs. 6. No acute abnormality. No evidence of osteomyelitis. RPTAT: QQ .Rell Chavez MD, MD Date Time Electronically viewed and signed by .Rell Chavez MD, MD on 02/03/2017 19:42 .R/
[2017-02-03] MEDS ORDERED: INSULIN GLARGINE [LANtus] 3 ML PEN SC SCH (20:00)
[2017-02-03] MEDS: FAMOTIDINE 20 MG TAB PO SCH (20:07)
[2017-02-03] MEDS: ATORVASTATIN 10 MG TAB PO SCH (20:07)
[2017-02-03] MEDS: POLYETHYLENE GLYCOL 17 GM PACKET PO SCH (20:08)
[2017-02-03] MEDS ORDERED: CEFEPIME 1GM/50 ML (PMX) 50 ML IVPB SCH (21:00)
[2017-02-04] VITALS (20 sets, daily range): BP systolic 95–159; BP diastolic 45–78; PULSE 65–82; RESP 17–18
[2017-02-04] MEDS: ACCU-CHEK XX SCH (02:00)
--- NOTE | 2017-02-04 03:34 | CONS ---
DATE OF ADMISSION: 02/03/2017 DATE OF CONSULTATION: 02/03/2017 HISTORY OF PRESENT ILLNESS: The patient is a 66-year-old halfway resident with past medical hi story of end-stage renal disease, diabetes, congestive heart failure, hypertension, left lower extre mity nonhealing diabetic foot wound, right [id number] amputation. The patient presented from [facility] facility after noticing altered level of consciousness. Last hemodialysis was yesterday. The pat ient began feeling short of breath and also hallucinating. In the emergency room noted to have leuk ocytosis with a white count of 20, a hemoglobin of 7.3. Chest x-ray showed cardiomegaly, a CT scan which only showed pulmonary venous congestion. Brain CT scan was negative. The patient was started on antibiotics, transfused 2 units, is receiving the 2 units currently. There have been no recent fevers, chills, nausea, vomiting, chest pain, shortness of breath. PAST MEDICAL HISTORY: As above. MEDICATIONS: From home include: 1. Heparin. 2. SubQ insulin. 3. Isoniazid 4. Losartan. 5. Nephro-Emmanuel. 6. Protonix. 7. MiraLax. 8. Renagel. 9. Simvastatin. 10. Dulcolax. 11. Hydralazine. 12. Benadryl. ALLERGIES: PENICILLIN. SOCIAL HISTORY: Does not smoke, drink or use IV drugs. She lives in a nursing facility. FAMILY HISTORY: Kidney disease. REVIEW OF SYSTEMS: A 14-point review of systems attempted and negative unless stated. PHYSICAL EXAMINATION: VITAL SIGNS: Temperature 97, blood pressure 126/60. HEENT: Normocephalic, atraumatic. Pupils equal, round, reactive to light. Oropharynx is moist. NECK: Supple. HEART: Regular rate and rhythm. LUNGS: Bilateral diminished breath sounds. ABDOMEN: Soft, nontender, nondistended. Bowel sounds present. EXTREMITIES: No clubbing, cyanosis or edema. Left foot wound with dressing on left foot, left toe onychomycosis, right [id number] amputation. SKIN: Shows multiple scaly lesions. LABORATORY EVALUATION: Showed white count 20.3, hemoglobin 7.3, hematocrit 24.3. Sodium 136, potas sium 3.6, BUN 33, creatinine 3.0. UA is reviewed on microscopy. Chest x-ray is reviewed. IMPRESSION: 1. End-stage renal disease on hemodialysis. Assess daily for dialysis needs. We will order dialys is for tomorrow. The patient does not have any acute symptoms, is on room air right now. 2. Sepsis, most likely secondary to underlying left foot infected wound. No evidence of septic tahmina ck. The patient will be started on empiric antibiotics. 3. Anemia, status post packed red blood cells. The patient's iron panel shows iron deficiency. Lo ok out for source of blood loss. 4. Type 2 diabetes. Patient is on sliding scale. 5. Congestive heart failure. A 2D echo is to be ordered. 6. Multiple skin lesions. Workup under care right now. 7. Acute encephalopathy, probably toxic metabolic. Dictated By: JENNYFER MEJIA/CELESTINO Conf#: [id number] DID#: [id number]
[2017-02-04 08:05] LABS: ADD SCAN DIFF NO
[2017-02-04 08:16] LABS: BASOPHIL # 0.1 10^3/ul (0.0-0.1); BASOPHILS % 0.4 % (0.0-2.0); EOSINOPHILS # 0.4 10^3/ul (0.0-0.5); EOSINOPHILS % 1.9 % (0.0-7.0); HEMATOCRIT 30.7 % (37.0-47.0); HEMOGLOBIN 9.4 g/dl (12.0-16.0); LYMPHOCYTES # 1.5 10^3/ul (0.8-2.9); LYMPHOCYTES % 7.6 % (15.0-51.0); MEAN CORPUSCULAR HEMOGLOBIN 29.9 pg (29.0-33.0); MEAN CORPUSCULAR HGB CONC 30.6 g/dl (32.0-37.0); MEAN CORPUSCULAR VOLUME 97.8 fl (82.0-101.0); MEAN PLATELET VOLUME 9.2 fl (7.4-10.4); MONOCYTE # 0.7 10^3/ul (0.3-0.9); MONOCYTES % 3.8 % (0.0-11.0); NEUTROPHIL # 16.2 10^3/ul (1.6-7.5); NEUTROPHILS % 85.1 % (39.0-77.0); NUCLEATED RED BLOOD CELLS # 0.1 10^3/ul (0.0-0.0); NUCLEATED RED BLOOD CELLS% 0.4 /100WBC (0.0-0.0); PLATELET COUNT 677 10^3/UL (140-415); RED BLOOD COUNT 3.14 10^6/ul (4.20-5.40); RED CELL DISTRIBUTION WIDTH 19.9 % (11.5-14.5); WHITE BLOOD COUNT 19.1 10^3/ul (4.8-10.8)
[2017-02-04] MEDS: ISONIAZID 300 MG TAB PO SCH (08:27)
[2017-02-04] MEDS: POLYETHYLENE GLYCOL 17 GM PACKET PO SCH ×2 (08:27→22:36)
[2017-02-04] MEDS: SEVELAMER 800 MG TAB PO SCH ×3 (08:27→17:28)
[2017-02-04] MEDS: LOSARTAN 50 MG TAB PO SCH (08:28)
[2017-02-04] MEDS: FOLIC ACID 1 MG TAB PO SCH (08:28)
[2017-02-04] MEDS: MULTIVIT/CA CARB/B CMPLX/FA TAB PO SCH (08:28)
[2017-02-04] MEDS: INSULIN ASPART [NOVOLOG] 3 ML PEN SC SCH ×7 (08:29→22:39)
[2017-02-04] MEDS: FLUOCINONIDE 0.05%/EMOLL 15 GM CR TOP SCH ×2 (08:33→21:00)
[2017-02-04 08:38] LABS: POTASSIUM 3.5 mmol/L (3.5-5.1)
[2017-02-04 08:40] LABS: CREATININE 2.93 mg/dl (0.44-1.00)
[2017-02-04 08:41] LABS: CALCIUM 9.3 mg/dl (8.4-10.2)
[2017-02-04 08:50] LABS: PHOSPHORUS 4.2 mg/dl (2.5-4.9)
[2017-02-04 08:51] LABS: MAGNESIUM 2.1 mg/dl (1.7-2.5)
--- NOTE | 2017-02-04 09:48 | PN ---
DATE: SUBJECTIVE: The patient had hemodialysis this morning, tolerated it well without complications. OBJECTIVE: VITAL SIGNS: Blood pressure 124/45, respirations 18, pulse 77, temperature 98.5. HEENT: Head is normocephalic. NECK: Supple. HEART: Regular rate. LUNGS: Show diminished breath sounds at the base. ABDOMEN: Soft, nontender to palpation, no rebound or guarding. EXTREMITIES: Negative for clubbing, cyanosis. Positive gangrene on the left heel. DERMATOLOGIC: No rashes. MUSCULOSKELETAL: No joint effusions. NEUROLOGIC: No change in exam. MEDICATIONS: The patient's medications have been reviewed. LABORATORY DATA: Shows a white count of 19.1, hemoglobin 9.4, hematocrit 30.7, platelet count 677. Sodium 144, potassium 3.5, BUN 29, creatinine 2.93. ASSESSMENT AND PLAN: 1. End-stage renal disease. The patient is status post hemodialysis. Will dialyze for 3 hours on a 3K bath, calcium 2.5. Anticipate next dialysis on Saturday. 2. Sepsis secondary to left foot cellulitis. The patient is currently on antibiotic therapy. We w ill continue. 3. Anemia. Continue to monitor H and H levels. Will give Epogen with dialysis. 4. Mineral bone disorder. Monitor calcium and phosphorus levels. 5. Hypertension. Continue current blood pressure regimen. 6. Right above-knee amputation. 7. Diabetes. Continue Accu-Cheks, insulin sliding scale. 8. Encephalopathy, etiology is toxic metabolic. Continue to monitor. Dictated By: LUIS RAMEY/CELESTINO Conf#: [id number] DID#: [id number]
[2017-02-04] MEDS: SOD FERRIC GLUC COMPLX 125 MG in SOD CHLORIDE 0.9% 100 ML IVPB SCH (12:12)
--- NOTE | 2017-02-04 12:55 | PN ---
Date/Time of Note Date/Time of Note DATE: 02/04/17 TIME: 12:41 Assessment/Plan VTE Prophylaxis VTE Prophylaxis Intervention: heparin Lines/Catheters IV [facility] [place] [facility] Urinary Cath still in place: No Assessment/Plan Assessment/Plan 1. Left foot cellulitis, follow up with arterial ultrasound and follow up with podiatry for debridement, on antibiotics 2. Sepsis secondary to left foot cellulitis. The patient is currently on antibiotic therapy. We will continue. 3. End-stage renal disease. The patient is status post hemodialysis. Will dialyze for 3 hours on a 3K bath, calcium 2.5. Anticipate next dialysis on Saturday. 4. DM, adjust insulin 02/04/2017. 5. Normocytic anemia, s/p 2 units PRBC, stable 6. Mineral bone disorder. Monitor calcium and phosphorus levels. 7. Hypertension. Continue current blood pressure regimen. 8. Right above-knee amputation. 9. Encephalopathy, sepsis related, resolved 10. DVT prophylaxis: .heparin Subjective 24 Hr Interval Summary Free Text/Dictation no shortness of breath Exam/Review of Systems Vital Signs Vitals Vital Signs Date Time Temp Pulse Resp B/P Pulse Ox O2 Delivery O2 Flow Rate FiO2 02/04/17 11:57 98.7 68 18 144/65 96 02/04/17 08:00 Nasal Cannula 2.0 Intake and Output 02/03/17 02/03/17 02/04/17 14:59 22:59 06:59 Intake Total 520 ml 50 ml Balance 520 ml 50 ml Exam Constitutional: alert, oriented, well developed Psych: nl mood/affect, no complaints Head: atraumatic, normocephalic Eyes: EOMI, PERRL, nl conjunctiva, nl lids ENMT: mucosa pink and moist, nl external ears & nose, nl lips & teeth, nl nasal mucosa & septum Neck: non-tender, supple Respiratory: clear to auscultation, normal air movement, No congested cough, No crackles/rales, No diminished breath sounds, No intercostal retraction, No labored breathing, No other, No respirations, No tactile fremitus, No wheezing Cardiovascular: nl pulses, regular rate and rhythm, No S3, No S4, No bruits, No diastolic murmur, No edema, No gallop, No irregular rhythm, No jugular venous distention (JVD), No murmurs/extra sounds, No other, No rub, No systolic murmur Gastrointestinal: nl liver, spleen, non-tender, soft, No ascites, No bowel sounds, No distended, No firm, No hepatomegaly, No mass , No other, No rebound or guarding, No splenomegaly, No surgical scars, No tender Musculoskeletal: other (tight bka) Extremities: other (right BKA, left heel dark colored without discharge) Neurological: PRESALES CONSULTANT II-XII intact, nl mental status, nl speech Results Result Diagram: 02/04/17 0643 02/04/17 0643 Results 24 hrs Laboratory Tests Test 02/03/17 12:51 02/03/17 14:15 02/03/17 14:18 02/03/17 16:04 Bedside Glucose 146 Erythrocyte Sedimentation Rate 140 H Sodium Level 136 Potassium Level 3.8 Chloride Level 96 L Carbon Dioxide Level 28 Anion Gap 16 Blood Urea Nitrogen 40 H Creatinine 3.55 H Glucose Level 184 # Hemoglobin A1c 6.0 H Calcium Level 8.7 Magnesium Level 1.9 Creatine Kinase < 20 L Creatine Kinase Index Creatinine Kinase MB (Mass) 0.37 Troponin I 0.013 Vitamin D 1,25-Dihydroxy 15.2 L Thyroid Stimulating Hormone (TSH) 2.870 Free Thyroxine 1.37 Lactic Acid Level 1.0 Test 02/03/17 17:45 02/03/17 17:57 02/03/17 20:12 02/04/17 05:20 Lactic Acid Level 1.0 Creatine Kinase < 20 L Creatine Kinase Index Creatinine Kinase MB (Mass) 0.40 Troponin I 0.014 Bedside Glucose 117 113 Lab Scanned Report BLOOD TRANSFUSION Test 02/04/17 06:43 02/04/17 08:05 02/04/17 12:03 02/04/17 12:19 White Blood Count 19.1 H Red Blood Count 3.14 #L Hemoglobin 9.4 #L Hematocrit 30.7 #L Mean Corpuscular Volume 97.8 Mean Corpuscular Hemoglobin 29.9 Mean Corpuscular Hemoglobin Concent 30.6 L Red Cell Distribution Width 19.9 #H Platelet Count 677 H Mean Platelet Volume 9.2 Neutrophils % 85.1 H Lymphocytes % 7.6 L Monocytes % 3.8 Eosinophils % 1.9 Basophils % 0.4 Nucleated Red Blood Cells % 0.4 H Neutrophils # 16.2 H Lymphocytes # 1.5 Monocytes # 0.7 Eosinophils # 0.4 Basophils # 0.1 Nucleated Red Blood Cells # 0.1 H Sodium Level 144 Potassium Level 3.5 Chloride Level 100 Carbon Dioxide Level 29 Anion Gap 19 H Blood Urea Nitrogen 29 #H Creatinine 2.93 H Glucose Level 124 # Calcium Level 9.3 Phosphorus Level 4.2 Magnesium Level 2.1 Bedside Glucose 151 61 L 80 Medications Medications Current Medications Lorazepam (Ativan) 0.5 mg Q6H PRN IV ANXIETY; Start 02/03/17 at 09:30 Acetaminophen (Tylenol Tab) 650 mg Q6H PRN PO PAIN LEVEL 1-3 OR FEVER; Start at 09:30 Acetaminophen/ Hydrocodone Bitart (Coleman (5/325)) 1 tab Q6H PRN PO PAIN LEVEL 4 -6; Start 02/03/17 at 09:30 Morphine Sulfate (morphine) 2 mg Q4H PRN IV PAIN LEVEL 7-10; Start 02/03/17 at 09:30 Famotidine (Pepcid) 20 mg Q24H PO Last administered on 02/03/17 20:07; Admin Dose 20 MG; Start 02/03/17 at 21:00 Hydralazine HCl 10 mg 10 mg Q6H PRN IV SBP>160; Start 02/03/17 at 09:30 Cefepime HCl (Maxipime 1gm/50 ml (Pmx)) 50 ml @ 100 mls/hr Q24H IVPB Last administered on 02/03/17 20:08; Admin Dose 100 MLS/HR; Start 02/03/17 at 21:00 Insulin Glargine (Lantus) 21 unit DAILY@20 SC ; Start 02/03/17 at 20:00 Diagnostic Test (Pha) (Accu-Chek) 1 ea 02 XX ; Start 02/04/17 at 02:00 Miscellaneous Information 1 ea NOTE XX ; Start 02/03/17 at 10:00 Glucose (Glutose) 15 gm Q15M PRN PO DECREASED GLUCOSE; Start 02/03/17 at 10:00 Glucose (Glutose) 22.5 gm Q15M PRN PO DECREASED GLUCOSE; Start 02/03/17 at 10: 00 Dextrose (D50w Syringe) 25 ml Q15M PRN IV DECREASED GLUCOSE; Start 02/03/17 at 10:00 Dextrose (D50w Syringe) 50 ml Q15M PRN IV DECREASED GLUCOSE; Start 02/03/17 at 10:00 Glucagon (Glucagen) 1 mg Q15M PRN IM DECREASED GLUCOSE; Start 02/03/17 at 10:00 Glucose 15 gm 15 gm Q15M PRN BUCCAL DECREASED GLUCOSE; Start 02/03/17 at 10:00 Ferric Sodium Gluconate Complex/ Sodium Chloride (Ferrlecit/NS) 110 ml @ 100 mls/hr Q24H IVPB Last administered on 02/04/17 12:12; Admin Dose 100 MLS/HR; Start 02/03/17 at 11:00; Stop 02/05/17 at 12:05 Atorvastatin Calcium (Lipitor) 10 mg HS PO Last administered on 02/03/17 20:07 ; Admin Dose 10 MG; Start 02/03/17 at 21:00 Losartan Potassium (Cozaar) 100 mg DAILY PO Last administered on 02/04/17 08: 28; Admin Dose 100 MG; Start 02/03/17 at 11:00 Multivit/Ca Carb/ B Cmplx/FA/Prenat (Zeynep-Emmanuel) 1 tab DAILY PO Last administered on 02/04/17 08:28; Admin Dose 1 TAB; Start 02/04/17 at 09:00 Isoniazid (Isoniazid) 300 mg DAILY PO Last administered on 02/04/17 08:27; Admin Dose 300 MG; Start 02/03/17 at 11:00 Hydralazine HCl (Apresoline) 25 mg TID PO Last administered on 02/04/17 12:12 ; Admin Dose 25 MG; Start 02/03/17 at 13:00 Polyethylene Glycol (Miralax) 17 gm BID PO Last administered on 02/04/17 08:27 ; Admin Dose 17 GM; Start 02/03/17 at 21:00 Hydroxyzine HCl (Atarax) 25 mg Q6H PRN PO ITCHING; Start 02/03/17 at 11:00 Carvedilol (Coreg) 6.25 mg BID PO Last administered on 02/04/17 08:28; Admin Dose 6.25 MG; Start 02/03/17 at 21:00 Folic Acid (Folic Acid) 1 mg DAILY PO Last administered on 02/04/17 08:28; Admin Dose 1 MG; Start 02/04/17 at 09:00 Fluocinonide (Lidex E 0.05%/ Emoll Cr) APPLY SPARINGLY bid to... BID TOP Last administered on 02/04/17t 08:33; Admin Dose 1 APPLIC; Start 02/03/17 at 17:30 Miscellaneous Information (*Rx Drug Level Order Reminder*) RANDOM VANCOMYCIN LEVEL 5... ONCE ONCE XX ; Start 02/05/17 at 05:00; Stop 02/05/17 at 05:01 ODALIS CROSS MD February 04, 2017 12:51
[2017-02-04] MEDS: HEPARIN 5,000 UNIT/0.5 ML VIAL SC SCH ×2 (13:07→22:38)
--- NOTE | 2017-02-04 13:35 | RADRPT ---
PROCEDURE: US Lower extremity arterial. CLINICAL INDICATION: Peripheral arterial disease. left heel ulceration. The patient is status po st a right [id number] amputation. TECHNIQUE: Multiple sonographic images of the bilateral lower extremity arteries was obtained util izing grayscale, color-flow, and doppler imaging. The images were reviewed on a PACS workstation. COMPARISON: None. FINDINGS: Velocities and waveforms were obtained as described below. RIGHT LEG: Common femoral artery: 81.4 cm/s; biphasic waveforms Proximal superficial femoral artery: 94.4 cm/s; biphasic waveforms Mid superficial femoral artery: 52.2 cm/s; biphasic waveforms Distal superficial femoral artery: 96.1 cm/s; biphasic waveforms Popliteal artery: 58.4 cm/s; biphasic waveforms LEFT LEG: Common femoral artery: 126.3 cm/s; biphasic waveforms Proximal superficial femoral artery: 138 cm/s; biphasic waveforms Mid superficial femoral artery: 96.6 cm/s; monophasic waveforms Distal superficial femoral artery: 95.1 cm/s; monophasic waveforms Popliteal artery: 78.3 cm/s; monophasic waveforms Posterior tibial artery: 46 cm/s; monophasic waveforms Dorsalis pedis artery: 50.2 cm/s; monophasic waveforms There is extensive calcified plaque within the lower extremities bilaterally. Left CASPER: 1.0 IMPRESSION: 1. Abnormal examination demonstrating diffusely dampened waveforms in both lower extremities, at le ast partially related to inflow disease. 2. Monophasic waveforms extending from the left mid superficial femoral artery distally, likely rel ated to a a combination of inflow and intrinsic disease. RPTAT: GG .Tanner San MD, MD Date Time Electronically viewed and signed by .Tanner San MD, MD on 02/04/2017 13:35 .P/
[2017-02-04] MEDS ORDERED: AMIKACIN IV PER PHARMACY XX SCH (18:00)
[2017-02-04] MEDS ORDERED: INSULIN ASPART [NOVOLOG] 3 ML PEN SC SCH (18:05)
--- NOTE | 2017-02-04 19:15 | PN ---
DATE: 02/04/2017 INFECTIOUS DISEASE PROGRESS NOTE SUBJECTIVE: No acute changes. The patient is awake, looks comfortable, spiking fevers with a T-max last night of 100.1, T-current 98.7. WBC today 19.1, H and H 9.4 and 30.7, platelets 677, neutroph ils 85.1, BUN 29, creatinine 2.93. MICROBIOLOGY: Left foot wound culture growing gram-negative rods. Blood cultures negative. DIAGNOSTICS: CT of the abdomen and pelvis revealed nonspecific gallbladder wall thickening, mild ca rdiomegaly and pulmonary venous congestion, anasarca, bilateral atelectasis. ANTIMICROBIALS: The patient is on Cefepime, vanco. ALLERGIES: PENICILLIN. PHYSICAL EXAMINATION: GENERAL: This is a well-developed, obese, elderly woman who is awake, in no distress. HEENT: Head atraumatic, normocephalic. Sclerae anicteric. Buccal mucosa dry. NECK: Supple, trachea midline. CHEST: Rise symmetrical. Breath sounds clear, diminished to bases. HEART: S1, S2. ABDOMEN: Soft. Bowel tones present. EXTREMITIES: Left foot necrotic wounds. SKIN: With multiple skin lesions. ASSESSMENT: 1. Left foot cellulitis with wound culture growing gram-negative rods. 2. Diabetes. 3. End-stage renal disease, hemodialysis dependent. 4. Anemia. PLAN: The patient remains stable. We will continue her on current antimicrobials. Await for final wound cultures. Follow podiatry recommendations. Dictated By: LY MULLINS ELECTRONIC SYSTEM ENGINEER for DIANA STERN/CELESTINO Conf#: [id number] DID#: [id number]
[2017-02-04] MEDS ORDERED: hydrOXYzine HCL 10 MG TAB PO PRN (20:00)
[2017-02-04] MEDS ORDERED: ACETAMINOPHEN 500 MG TAB PO PRN (20:00)
[2017-02-04] MEDS ORDERED: FOLIC ACID 1 MG TAB PO SCH (20:00)
[2017-02-04] MEDS ORDERED: ISONIAZID 300 MG TAB PO SCH (20:00)
[2017-02-04] MEDS ORDERED: INSULIN GLARGINE [LANtus] 3 ML PEN SC SCH (20:00)
[2017-02-04] MEDS ORDERED: AMIKACIN 375 MG in SOD CHLORIDE 0.9% 100 ML IVPB SCH (20:00)
--- NOTE | 2017-02-04 20:24 | CONS ---
DATE OF ADMISSION: 02/03/2017 DATE OF CONSULTATION: 02/03/2017 TYPE OF CONSULTATION: Infectious disease. REASON FOR CONSULTATION: Antibiotic management. HISTORY OF PRESENT ILLNESS: Enedelia Roper is a 66-year-old female with a number of problem s who is admitted with altered levels of consciousness and worsening of her left lower extremity wou nd. The patient is being followed by Dr. Magdaleno Ortiz in podiatry. She is a shelter residen t with multiple comorbidities includin. End-stage renal disease on hemodialysis. 2. Adult-onset diabetes mellitus. 3. Coronary artery disease with congestive heart failure. 4. Hypertension. 5. Left lower extremity nonhealing diabetic wound. She was brought in with altered levels of consciousness. She received dialysis on the , was fee ling short of breath in the evening, and was hallucinating. In the emergency room, her white count was 20.3, H and H 7.3 and 24.3, platelet count 647,000. White count today is 19.1. Her urine shows 2+ protein, 2+ blood, negative nitrite, and trace leukocyte esterase. Her BUN and creatinine are 2 9/2.93. MICROBIOLOGY: Her wound is growing gram-negative rods. Blood cultures are negative. IMAGING: Chest x-ray is clear. Her foot x-ray shows atherosclerosis, lateral subluxation of the se cond, third, and fourth 4th metatarsophalangeal joints, degenerative changes of the first metatarsop halangeal joint, calcaneal spurs, no acute abnormalities. No evidence of osteomyelitis. CT scan of the abdomen and pelvis showed mild nonspecific gallbladder wall thickening, mild cardiomegaly, and pulmonary vascular congestion, mild bibasilar atelectasis, extensive vascular calcifications reflect maryjo of atherosclerosis, anasarca, mild nonspecific presacral stranding. Arterial study was done. S he has left heel ulceration and is status post right below the knee amputation. She has abnormal ex amination of lower extremity related to inflow disease. PAST MEDICAL HISTORY: Includes end-stage renal disease, diabetes, congestive heart failure, left lo wer extremity nonhealing diabetic wound. PAST SURGICAL HISTORY: AV fistula in left upper extremity and right below knee amputation. SOCIAL HISTORY: She lives in a shelter. She does not smoke, drink, or abuse drugs. ALLERGIES: PENICILLIN. MEDICATIONS: Per chart. REVIEW OF SYSTEMS: Noncontributory. PHYSICAL EXAMINATION: GENERAL: The patient is an obese female who is lying in bed in no acute distress. VITAL SIGNS: Stable. She is afebrile. SKIN: Without generalized rash. HEENT: Within normal limits. NECK: Supple. LYMPH NODES: None palpable. CHEST: Decreased breath sounds at the bases. HEART: Without murmur or gallop. ABDOMEN: Soft, obese, nontender without organosplenomegaly or masses. EXTREMITIES: She has right below knee amputation. Left lower extremity has a wound. She has left heel gangrene. She has a pressure sore on the sacrum and left foot with cellulitis. There is unsta geable wound on the plantar lateral aspect of the left foot with gangrenous changes, slight malodor, deformity of the nails, mycotic changes, hammertoe deformities present. There is ulceration of the right great toe with full-thickness necrosis. LABORATORY DATA: White count was 20.3, H and H of 7.3 and 24.3, platelet count 647,000. BUN and cr eatinine 33/3. IMPRESSION AND PLAN: Cellulitis of the left lower extremity. The patient may need an angiogram. S he needs consent for debridement. She was also seen by Dr. Friedman for dialysis. She receives vanc omycin and, since she is a dialysis patient, that will last for a while. Where she has gram-negativ e rods on the wounds, I am going to place her on amikacin with pharmacy to dose. I will dictate my findings to the hospitalist, Dr. Ortiz, and Dr. Friedman. Dictated By: DIANA GUAJARDO MD, JD/CELESTINO Conf#: [id number] DID#: [id number] CC: PELON ALCARAZ MD;*EndCC*
[2017-02-04] MEDS ORDERED: POLYETHYLENE GLYCOL 17 GM PACKET PO SCH (21:00)
[2017-02-04] MEDS ORDERED: HEPARIN 5,000 UNIT/0.5 ML VIAL SC SCH (21:00)
[2017-02-04] MEDS ORDERED: HEPARIN 1000 UNITS/ML 30 ML INJ SC SCH (21:00)
[2017-02-04] MEDS: PYRIDOXINE 50 MG TAB PO SCH (22:34)
[2017-02-04] MEDS: ATORVASTATIN 10 MG TAB PO SCH (22:35)
[2017-02-04] MEDS: FAMOTIDINE 20 MG TAB PO SCH (22:36)
[2017-02-04] MEDS: BISACODYL (EC) 5 MG TAB PO SCH (22:36)
[2017-02-04] MEDS: DOCUSATE SODIUM 100 MG CAP PO SCH (22:36)
[2017-02-04] MEDS: INSULIN GLARGINE [LANtus] 3 ML PEN SC SCH (22:40)
--- NOTE | 2017-02-05 00:03 | RADRPT ---
Echocardiogram Report Patient Name: CORINNA SMILEY Gender: Female Date: 1950 Study Date: 04-Feb-2017 Suggestion Clerk: DIPAK/DANIEL Location: 5536 Ref. Physician: GENTRY GUERRERO Quality: Adequate Procedures: Transthoracic echocardiogram with complete 2D, M-Mode, and doppler examination. Indications: Evaluate Left Ventricular function. 2D/M Mode Doppler Measurement Value Normal Ranges Measurement Value Normal Ranges LVIDd 2D 4.6 3.5 - 5.6 cm SARITHA Vmax 1.8 cm2 LVIDs 2D 2.8 2.1 - 4.1 cm SARITHA VTI 1.8 cm2 FS 2D 38.0 % AV Mean Rg 1.5 m/sec LVPWd 2D 1.0 0.6 - 1.1 cm AV Mean PG 10.0 mmHg IVSd 2D 1.1 0.6 - 1.1 cm AV Peak Rg 2.2 m/sec IVS/LVPW 2D 1.1 AV Peak PG 19.0 mmHg AoR Diam 2D 1.9 2.0 - 3.7 cm AV VTI 41.8 cm LA/Ao 2D 1 0 - 1 LVOT Mean Rg 0.9 m/sec EDV 2D 97.3 cm3 LVOT Mean PG 3.0 mmHg ESV 2D 23.1 cm3 LVOT Peak Rg 1.4 m/sec LA Dimen 2D 2.7 2.3 - 4.0 cm LVOT Peak PG 8.0 mmHg LVOT Diam 1.9 cm LVOT VTI 27.0 cm LVOT Area 2.8 cm2 MV E Peak Rg 1.1 m/sec MV A Peak Rg 1.2 m/sec MV E/A 0.9 MV Decel Time 268 msec MV E/A 0.9 TR Peak Rg 2.9 m/sec TR Peak PG 34.0 mmHg RVSP 37.0 mmHg Findings Left Ventricle: Normal left ventricular systolic function. Normal left ventricular cavity size. Normal left ventricular wall thickness. Ejection fraction is visually estimated at 5560 %. Tissue Doppler/Mitral Doppler indices are consistent with impaired relaxation (Stage I diastolic dysfunction). Right Ventricle: Normal right ventricular size. Normal right ventricular systolic function. Left Atrium: The left atrium is normal in size. Right Atrium: The right atrium is normal in size. Mitral Valve: Mitral valve leaflets appear mildly thickened. Mild mitral annular calcification. Trace mitral regurgitation. Aortic Valve: Mild aortic stenosis. Aortic valve Max velocity 2.27 m/sec. Max PG 21.00 mmHg. Mean PG 10.00 mmHg. Aortic valve area 1.83 cm2. Trace aortic valve regurgitation. Tricuspid Valve: Normal appearance of the tricuspid valve. There is trace tricuspid regurgitation. Pulmonic Valve: Normal pulmonic valve appearance. Pericardium: Normal pericardium with no significant pericardial effusion. Aorta: Normal aortic root. IVC: Normal size and normal respiratory collapse consistent with normal right atrial pressure. Conclusions 1.Normal left ventricular systolic function. Normal left ventricular cavity size. Normal left ventricular wall thickness. Ejection fraction is visually estimated at 55-60 %. Tissue Doppler/Mitral Doppler indices are consistent with impaired relaxation (Stage I diastolic dysfunction). 2.Mitral valve leaflets appear mildly thickened. Mild mitral annular calcification. Trace mitral regurgitation. 3.Mild aortic stenosis. Mean PG 10.00 mmHg. Aortic valve area 1.83 cm2. Trace aortic valve regurgitation. 4.Normal appearance of the tricuspid valve. There is trace tricuspid regurgitation. Electronically Signed By: Magdi Hood 05-Feb-2017 00:03:01 -0700 Patient Name: CORINNA SMILEY Study Date: 04-Feb-2017 [id number]
--- NOTE | 2017-02-05 01:08 | CONS ---
DATE OF ADMISSION: 02/03/2017 DATE OF CONSULTATION: 02/04/2017 SUBJECTIVE FINDINGS: The patient being followed for left heel ulceration dry gangrene. Consent for procedure is pending. The patient currently on amikacin for gram-negative bernice infection. The alek ent with persistent leukocytosis. OBJECTIVE FINDINGS: VITAL SIGNS: Temperature 98.9, pulse 67, respiratory rate 18, blood pressure 95/53, pulse ox 96%. GENERAL: The patient lying supine, obese. HEENT: Head is normocephalic, atraumatic. EXTREMITIES: Right below-knee amputation, left foot with ulceration. Posterolateral heel with skin , subcutaneous necrosis. Ulceration is unstageable. There is a slight malodor with cellulitis. My cotic nails. Pain with palpation. MICROBIOLOGY: Cultures are gram-negative rods from left foot. Blood cultures no growth. LABORATORIES: WBC 19.1, hemoglobin 9.4, hematocrit 30.7, platelets count 677. Glucose 216. ASSESSMENT: 1. Cellulitis, left foot. 2. Left heel ulceration, unstageable. 3. Sepsis, leukocytosis, WBC of 19.1. 4. End-stage renal disease on hemodialysis. 5. Anemia, status post transfusion of packed red blood cells. PLAN: Reviewed the preliminary cultures. Recommend debridement. Informed consent pending. Contin ue with current nursing recommendations with Danilo. Dictated By: KRIS RODRIGUEZ/CELESTINO Conf#: [id number] DID#: [id number] CC: PELON ALCARAZ MD;*EndCC*
[2017-02-05] MEDS: ACCU-CHEK XX SCH (02:00)
[2017-02-05 02:21] VITALS: BP 170/72; PULSE 65; RESP 16
[2017-02-05] MEDS: hydrALAzine 20 MG INJ IV PRN (02:50)
[2017-02-05 04:38] VITALS: BP 143/67
[2017-02-05] MEDS: PANTOPRAZOLE (EC) 40 MG TAB PO SCH (06:22)
[2017-02-05] MEDS: INSULIN ASPART [NOVOLOG] 3 ML PEN SC SCH ×7 (07:35→21:00)
[2017-02-05] MEDS ORDERED: SEVELAMER 800 MG TAB PO SCH (07:35)
[2017-02-05] MEDS: SEVELAMER 800 MG TAB PO SCH ×4 (07:35→17:49)
[2017-02-05 08:41] VITALS: BP 152/67; RESP 18
[2017-02-05] MEDS ORDERED: AMIKACIN IVPB ONE (09:00)
[2017-02-05] MEDS ORDERED: SOD CHLORIDE 0.9% IVPB ONE (09:00)
[2017-02-05] MEDS ORDERED: SILVER SULFADIAZINE 1% 400 GM CR TOP SCH (09:00)
[2017-02-05] MEDS ORDERED: MULTIVIT/CA CARB/B CMPLX/FA TAB PO SCH (09:00)
[2017-02-05] MEDS ORDERED: LOSARTAN 50 MG TAB PO SCH (09:00)
[2017-02-05] MEDS: FLUOCINONIDE 0.05%/EMOLL 15 GM CR TOP SCH ×2 (09:00→22:13)
[2017-02-05] MEDS: FOLIC ACID 1 MG TAB PO SCH (09:17)
[2017-02-05] MEDS: CLOPIDOGREL 75 MG TAB PO SCH (09:17)
[2017-02-05] MEDS: DOCUSATE SODIUM 100 MG CAP PO SCH ×2 (09:17→22:08)
[2017-02-05] MEDS: BISACODYL (EC) 5 MG TAB PO SCH (09:17)
[2017-02-05] MEDS: PYRIDOXINE 50 MG TAB PO SCH (09:17)
[2017-02-05] MEDS: MULTIVIT/CA CARB/B CMPLX/FA TAB PO SCH (09:17)
[2017-02-05] MEDS: ISONIAZID 300 MG TAB PO SCH (09:18)
[2017-02-05] MEDS: LOSARTAN 50 MG TAB PO SCH (09:19)
[2017-02-05] MEDS: POLYETHYLENE GLYCOL 17 GM PACKET PO SCH ×2 (09:20→22:15)
[2017-02-05] MEDS: HEPARIN 5,000 UNIT/0.5 ML VIAL SC SCH ×2 (09:22→22:12)
--- NOTE | 2017-02-05 09:32 | CONS ---
Date/Time of Note Date/Time of Note DATE: 02/05/17 TIME: 09:26 Assessment/Plan Assessment/Plan Problems: (1) Hypoxia Status: Acute (2) Left leg cellulitis Status: Acute (3) Symptomatic anemia Status: Acute (4) Hyperglycemia due to type 2 diabetes mellitus Status: Acute (5) Sepsis due to cellulitis Status: Acute Additional Assessment/Plan Severe PAD Open ucler infected on abx severe pad on US inflow disease pt may need PAD revascularization to improve her healing and debridement. I would see if we can plan her procedure today. will /fu Consultation Date/Type/Reason Admit Date/Time February 03, 2017 at 06:21 Date of Consultation: February 05, 2017 Reason for Consultation PAD Hx of Present Illness Patient is 66 year old F with PMH of HTn, HLD, DM, ESRD on HD, Right leg amputation, Left leg DM ulcer non healing, US of art she found to have bilateral monophasic, likely severe pAD and infected ulcer. She denies any CP or SOB. Constitutional: no complaints Psychological: nl mood/affect, no complaints Past Medical History Medical History: coronary artery disease Social History Smoking Status: Never smoker Exam/Review of Systems Vital Signs Vitals Vital Signs Date Time Temp Pulse Resp B/P Pulse Ox O2 Delivery O2 Flow Rate FiO2 02/05/17 08:41 98.0 62 18 152/67 96 02/05/17 02:21 Room Air 02/04/17 21:00 2.0 Intake and Output 02/04/17 02/04/17 02/05/17 15:00 23:00 07:00 Intake Total 100 ml 1000 ml 240 ml Output Total 3000 ml Balance 100 ml -2000 ml 240 ml Exam Constitutional: alert, oriented Neck: supple Respiratory: clear to auscultation Extremities: edema, tenderness Results Result Diagram: 02/04/17 0643 02/04/17 0643 Results 24 hrs Laboratory Tests Test 02/04/17 12:03 02/04/17 12:19 02/04/17 17:12 02/04/17 22:31 Bedside Glucose 61 L 80 216 185 Test 02/05/17 02:13 02/05/17 04:47 02/05/17 07:47 Bedside Glucose 135 98 Random Vancomycin Level 21.5 Medications Medications Current Medications Lorazepam (Ativan) 0.5 mg Q6H PRN IV ANXIETY; Start 02/03/17 at 09:30 Acetaminophen (Tylenol Tab) 650 mg Q6H PRN PO PAIN LEVEL 1-3 OR FEVER; Start at 09:30 Acetaminophen/ Hydrocodone Bitart ([place] (5/325)) 1 tab Q6H PRN PO PAIN LEVEL 4 -6; Start 02/03/17 at 09:30 Morphine Sulfate (morphine) 2 mg Q4H PRN IV PAIN LEVEL 7-10; Start 02/03/17 at 09:30 Famotidine (Pepcid) 20 mg Q24H PO Last administered on 02/04/17 22:36; Admin Dose 20 MG; Start 02/03/17 at 21:00 Hydralazine HCl (Apresoline) 10 mg Q6H PRN IV SBP>160 Last administered on 02/05 02:50; Admin Dose 10 MG; Start 02/03/17 at 09:30 Diagnostic Test (Pha) (Accu-Chek) 1 ea 02 XX ; Start 02/04/17 at 02:00 Miscellaneous Information 1 ea NOTE XX ; Start 02/03/17 at 10:00 Glucose (Glutose) 15 gm Q15M PRN PO DECREASED GLUCOSE; Start 02/03/17 at 10:00 Glucose (Glutose) 22.5 gm Q15M PRN PO DECREASED GLUCOSE; Start 02/03/17 at 10: 00 Dextrose (D50w Syringe) 25 ml Q15M PRN IV DECREASED GLUCOSE; Start 02/03/17 at 10:00 Dextrose (D50w Syringe) 50 ml Q15M PRN IV DECREASED GLUCOSE; Start 02/03/17 at 10:00 Glucagon (Glucagen) 1 mg Q15M PRN IM DECREASED GLUCOSE; Start 02/03/17 at 10:00 Glucose 15 gm 15 gm Q15M PRN BUCCAL DECREASED GLUCOSE; Start 02/03/17 at 10:00 Ferric Sodium Gluconate Complex/ Sodium Chloride (Ferrlecit/NS) 110 ml @ 100 mls/hr Q24H IVPB Last administered on 02/04/17 12:12; Admin Dose 100 MLS/HR; Start 02/03/17 at 11:00; Stop 02/05/17 at 12:05 Atorvastatin Calcium (Lipitor) 10 mg HS PO Last administered on 02/04/17 22:35 ; Admin Dose 10 MG; Start 02/03/17 at 21:00 Losartan Potassium (Cozaar) 100 mg DAILY PO Last administered on 02/04/17 08: 28; Admin Dose 100 MG; Start 02/03/17 at 11:00 Multivit/Ca Carb/ B Cmplx/FA/Prenat (Zeynep-Emmanuel) 1 tab DAILY PO Last administered on 02/04/17 08:28; Admin Dose 1 TAB; Start 02/04/17 at 09:00 Isoniazid (Isoniazid) 300 mg DAILY PO Last administered on 02/04/17 08:27; Admin Dose 300 MG; Start 02/03/17 at 11:00 Hydralazine HCl (Apresoline) 25 mg TID PO Last administered on 02/04/17 22:35 ; Admin Dose 25 MG; Start 02/03/17 at 13:00 Polyethylene Glycol (Miralax) 17 gm BID PO Last administered on 02/04/17 22:36 ; Admin Dose 17 GM; Start 02/03/17 at 21:00 Hydroxyzine HCl (Atarax) 25 mg Q6H PRN PO ITCHING; Start 02/03/17 at 11:00 Carvedilol (Coreg) 6.25 mg BID PO Last administered on 02/04/17 22:35; Admin Dose 6.25 MG; Start 02/03/17 at 21:00 Folic Acid (Folic Acid) 1 mg DAILY PO Last administered on 02/04/17 08:28; Admin Dose 1 MG; Start 02/04/17 at 09:00 Fluocinonide (Lidex E 0.05%/ Emoll Cr) APPLY SPARINGLY bid to... BID TOP Last administered on 02/04/17 08:33; Admin Dose 1 APPLIC; Start 02/03/17 at 17:30 Insulin Glargine (Lantus) 15 unit DAILY@20 SC Last administered on 02/04/17 22 :40; Admin Dose 15 UNIT; Start 02/04/17 at 20:00 Heparin Sodium (Porcine) (Heparin (5000 Units/0.5 ml)) 5,000 unit BID SC Last administered on 02/04/17 22:38; Admin Dose 5,000 UNIT; Start 02/04/17 at 13:00 Amikacin Sulfate (Amikacin Iv Per Pharmacy) AMIKACIN PER PHARMACY NOTE XX ; Start 02/04/17 at 18:00 Acetaminophen (Tylenol Tab) 500 mg Q4H PRN PO PAIN AND OR ELEVATED TEMP; Start 02/04/17 at 20:00 Bisacodyl (Dulcolax) 5 mg DAILY PO Last administered on 02/04/17 22:36; Admin Dose 5 MG; Start 02/04/17 at 20:00 Clonidine (Catapres) 0.1 mg BID PO Last administered on 02/04/17 22:36; Admin Dose 0.1 MG; Start 02/04/17 at 21:00 Clopidogrel Bisulfate (plaVIX) 75 mg DAILY PO ; Start 02/05/17 at 09:00 Docusate Sodium (Colace) 100 mg BID PO Last administered on 02/04/17 22:36; Admin Dose 100 MG; Start 02/04/17 at 21:00 Hydroxyzine HCl (Atarax) 10 mg Q6H PRN PO ITCHING; Start 02/04/17 at 20:00 Pantoprazole (Protonix Tab) 40 mg DAILY@06 PO Last administered on 02/05/17 06 :22; Admin Dose 40 MG; Start 02/05/17 at 06:00 Pyridoxine HCl (Vitamin B6) 50 mg DAILY PO Last administered on 02/04/17 22:34 ; Admin Dose 50 MG; Start 02/04/17 at 20:00 Silver Sulfadiazine 1 applic 1 applic BID TOP ; Start 02/05/17 at 09:00 Amikacin Sulfate 525 mg/Sodium Chloride 102.1 ml @ 102 mls/hr ONCE ONCE IVPB ; Start 02/05/17 at 09:00; Stop 02/05/17 at 10:00 Vancomycin HCl (Vancocin) 250 ml @ 125 mls/hr 16 IVPB ; Start 02/06/17 at 16:00 ; Stop 02/06/17 at 17:59 RAGHAVENDRA LANGSTON MD February 05, 2017 09:31
[2017-02-05] MEDS: SILVER SULFADIAZINE 1% 25 GM CR TOP SCH ×2 (09:34→22:11)
--- NOTE | 2017-02-05 10:00 | PN ---
DATE: 02/05/2017 SUBJECTIVE: The patient is stable, had hemodialysis yesterday, tolerated it well. OBJECTIVE: VITAL SIGNS: Blood pressure is 152/67, respirations 18, pulse 62, temperature 98.0. HEENT: Head is normocephalic. NECK: Supple. HEART: Regular rate. LUNGS: Show diminished breath sounds at the base. ABDOMEN: Soft, nontender to palpation without rebound, or guarding. EXTREMITIES: Positive for right above-knee amputation, left heel with noted gangrenous foot. DERMATOLOGIC: No rashes. MUSCULOSKELETAL: No joint effusions. NEUROLOGIC: No change in exam. MEDICATIONS: The patient's medications have been reviewed. LABORATORY DATA: Has been reviewed, no new labs. ASSESSMENT AND PLAN: 1. End-stage renal disease. The patient had hemodialysis yesterday, tolerated it well. Plan for d ialysis tomorrow. 2. Sepsis secondary to left foot cellulitis. Continue current antibiotic regimen. Follow up with vascular surgery. 3. Anemia. Continue to monitor hemoglobin and hematocrit levels. Continue Epogen. 4. Mineral bone disorder. Continue to monitor calcium and phosphorus levels. 5. Hypertension. Continue current blood pressure regimen. 6. Right below-knee amputation. 7. Diabetes. Continue Accu-Cheks and insulin sliding scale. 8. Encephalopathy. Etiology is toxic metabolic. The patient's mental status has been improving. Continue to monitor. Dictated By: LUIS RAMEY/CELESTINO Conf#: [id number] DID#: [id number]
[2017-02-05] MEDS: SOD FERRIC GLUC COMPLX 125 MG in SOD CHLORIDE 0.9% 100 ML IVPB SCH (11:07)
[2017-02-05 11:15] LABS: ADD SCAN DIFF NO
[2017-02-05 11:17] LABS: BASOPHILS % 0.2 % (0.0-2.0); EOSINOPHILS # 0.4 10^3/ul (0.0-0.5); EOSINOPHILS % 1.9 % (0.0-7.0); HEMATOCRIT 28.5 % (37.0-47.0); HEMOGLOBIN 8.8 g/dl (12.0-16.0); LYMPHOCYTES # 1.7 10^3/ul (0.8-2.9); LYMPHOCYTES % 9.1 % (15.0-51.0); MEAN CORPUSCULAR HEMOGLOBIN 30.9 pg (29.0-33.0); MEAN CORPUSCULAR HGB CONC 30.9 g/dl (32.0-37.0); MEAN PLATELET VOLUME 8.9 fl (7.4-10.4); NEUTROPHIL # 15.8 10^3/ul (1.6-7.5); NEUTROPHILS % 82.8 % (39.0-77.0); NUCLEATED RED BLOOD CELLS% 0.2 /100WBC (0.0-0.0); PLATELET COUNT 629 10^3/UL (140-415); RED BLOOD COUNT 2.85 10^6/ul (4.20-5.40); RED CELL DISTRIBUTION WIDTH 19.3 % (11.5-14.5); WHITE BLOOD COUNT 19.1 10^3/ul (4.8-10.8)
[2017-02-05 11:52] LABS: CALCIUM 8.8 mg/dl (8.4-10.2); CREATININE 3.64 mg/dl (0.44-1.00); MAGNESIUM 2.1 mg/dl (1.7-2.5); PHOSPHORUS 4.4 mg/dl (2.5-4.9); POTASSIUM 4.4 mmol/L (3.5-5.1)
--- NOTE | 2017-02-05 13:23 | PN ---
Date/Time of Note Date/Time of Note DATE: 02/05/17 TIME: 13:17 Assessment/Plan VTE Prophylaxis VTE Prophylaxis Intervention: heparin Lines/Catheters IV [facility]ter Type [facility]from [facility] Urinary Cath still in place: No Assessment/Plan Assessment/Plan 1. Left foot cellulitis, follow up with podiatry for debridement, on antibiotics 2. Sepsis secondary to left foot cellulitis. The patient is currently on antibiotic therapy. We will continue. 3. End-stage renal disease. The patient is status post hemodialysis. Will dialyze for 3 hours on a 3K bath, calcium 2.5. Anticipate next dialysis on Saturday. 4. DM, adjust insulin 02/04/2017. 5. Normocytic anemia, s/p 2 units PRBC, stable 6. Mineral bone disorder. Monitor calcium and phosphorus levels. 7. Hypertension. Continue current blood pressure regimen. 8. Right above-knee amputation. 9. Encephalopathy, sepsis related, resolved 10. Peripheral vascular disease, vascular consultation with Dr. Mccormick 11. DVT prophylaxis: .heparin Subjective 24 Hr Interval Summary Free Text/Dictation afebrile Exam/Review of Systems Vital Signs Vitals Vital Signs Date Time Temp Pulse Resp B/P Pulse Ox O2 Delivery O2 Flow Rate FiO2 02/05/17 08:41 98.0 62 18 152/67 96 02/05/17 02:21 Room Air 02/04/17 21:00 2.0 Intake and Output 02/04/17 02/04/17 02/05/17 15:00 23:00 07:00 Intake Total 100 ml 1000 ml 240 ml Output Total 3000 ml Balance 100 ml -2000 ml 240 ml Exam Constitutional: alert, oriented, well developed Psych: nl mood/affect, no complaints Head: atraumatic, normocephalic Eyes: EOMI, PERRL, nl conjunctiva, nl lids ENMT: nl external ears & nose, nl lips & teeth, nl nasal mucosa & septum Neck: non-tender, supple Respiratory: clear to auscultation, normal air movement, No congested cough, No crackles/rales, No diminished breath sounds, No intercostal retraction, No labored breathing, No other, No respirations, No tactile fremitus, No wheezing Cardiovascular: nl pulses, regular rate and rhythm, No S3, No S4, No bruits, No diastolic murmur, No edema, No gallop, No irregular rhythm, No jugular venous distention (JVD), No murmurs/extra sounds, No other, No rub, No systolic murmur Gastrointestinal: nl liver, spleen, non-tender, soft, No ascites, No bowel sounds, No distended, No firm, No hepatomegaly, No mass , No other, No rebound or guarding, No splenomegaly, No surgical scars, No tender Musculoskeletal: other (Right BKA) Extremities: other (right BKA, left heel wound) Neurological: LOG ROPER II-XII intact, nl mental status, nl strength Results Result Diagram: 02/05/17 1100 02/05/17 1100 Results 24 hrs Laboratory Tests Test 02/04/17 17:12 02/04/17 22:31 02/05/17 02:13 02/05/17 04:47 Bedside Glucose 216 185 135 Random Vancomycin Level 21.5 Test 02/05/17 07:47 02/05/17 11:00 02/05/17 12:40 Bedside Glucose 98 111 White Blood Count 19.1 H Red Blood Count 2.85 L Hemoglobin 8.8 L Hematocrit 28.5 L Mean Corpuscular Volume 100.0 Mean Corpuscular Hemoglobin 30.9 Mean Corpuscular Hemoglobin Concent 30.9 L Red Cell Distribution Width 19.3 H Platelet Count 629 H Mean Platelet Volume 8.9 Neutrophils % 82.8 H Lymphocytes % 9.1 L Monocytes % 5.0 Eosinophils % 1.9 Basophils % 0.2 Nucleated Red Blood Cells % 0.2 H Neutrophils # 15.8 H Lymphocytes # 1.7 Monocytes # 1.0 H Eosinophils # 0.4 Basophils # 0.0 Nucleated Red Blood Cells # 0.0 Sodium Level 134 L Potassium Level 4.4 Chloride Level 99 Carbon Dioxide Level 28 Anion Gap 11 # Blood Urea Nitrogen 34 H Creatinine 3.64 H Glucose Level 123 Calcium Level 8.8 Phosphorus Level 4.4 Magnesium Level 2.1 Medications Medications Current Medications Lorazepam (Ativan) 0.5 mg Q6H PRN IV ANXIETY; Start 02/03/17 at 09:30 Acetaminophen (Tylenol Tab) 650 mg Q6H PRN PO PAIN LEVEL 1-3 OR FEVER; Start at 09:30 Acetaminophen/ Hydrocodone Bitart ([place] (5/325)) 1 tab Q6H PRN PO PAIN LEVEL 4 -6; Start 02/03/17 at 09:30 Morphine Sulfate (morphine) 2 mg Q4H PRN IV PAIN LEVEL 7-10; Start 02/03/17 at 09:30 Famotidine (Pepcid) 20 mg Q24H PO Last administered on 02/04/17 22:36; Admin Dose 20 MG; Start 02/03/17 at 21:00 Hydralazine HCl (Apresoline) 10 mg Q6H PRN IV SBP>160 Last administered on 02/05 02:50; Admin Dose 10 MG; Start 02/03/17 at 09:30 Diagnostic Test (Pha) (Accu-Chek) 1 ea 02 XX ; Start 02/04/17 at 02:00 Miscellaneous Information 1 ea NOTE XX ; Start 02/03/17 at 10:00 Glucose (Glutose) 15 gm Q15M PRN PO DECREASED GLUCOSE; Start 02/03/17 at 10:00 Glucose (Glutose) 22.5 gm Q15M PRN PO DECREASED GLUCOSE; Start 02/03/17 at 10: 00 Dextrose (D50w Syringe) 25 ml Q15M PRN IV DECREASED GLUCOSE; Start 02/03/17 at 10:00 Dextrose (D50w Syringe) 50 ml Q15M PRN IV DECREASED GLUCOSE; Start 02/03/17 at 10:00 Glucagon (Glucagen) 1 mg Q15M PRN IM DECREASED GLUCOSE; Start 02/03/17 at 10:00 Glucose (Glutose) 15 gm Q15M PRN BUCCAL DECREASED GLUCOSE; Start 02/03/17 at 10 :00 Atorvastatin Calcium (Lipitor) 10 mg HS PO Last administered on 02/04/17 22:35 ; Admin Dose 10 MG; Start 02/03/17 at 21:00 Losartan Potassium (Cozaar) 100 mg DAILY PO Last administered on 02/05/17 09: 19; Admin Dose 100 MG; Start 02/03/17 at 11:00 Multivit/Ca Carb/ B Cmplx/FA/Prenat (Zeynep-Emmanuel) 1 tab DAILY PO Last administered on 02/05/17 09:17; Admin Dose 1 TAB; Start 02/04/17 at 09:00 Isoniazid (Isoniazid) 300 mg DAILY PO Last administered on 02/05/17 09:18; Admin Dose 300 MG; Start 02/03/17 at 11:00 Hydralazine HCl (Apresoline) 25 mg TID PO Last administered on 02/05/17 09:18 ; Admin Dose 25 MG; Start 02/03/17 at 13:00 Polyethylene Glycol (Miralax) 17 gm BID PO Last administered on 02/05/17 09:20 ; Admin Dose 17 GM; Start 02/03/17 at 21:00 Hydroxyzine HCl (Atarax) 25 mg Q6H PRN PO ITCHING; Start 02/03/17 at 11:00 Carvedilol (Coreg) 6.25 mg BID PO Last administered on 02/05/17 09:19; Admin Dose 6.25 MG; Start 02/03/17 at 21:00 Folic Acid (Folic Acid) 1 mg DAILY PO Last administered on 02/05/17 09:17; Admin Dose 1 MG; Start 02/04/17 at 09:00 Fluocinonide (Lidex E 0.05%/ Emoll Cr) APPLY SPARINGLY bid to... BID TOP Last administered on 02/04/17 08:33; Admin Dose 1 APPLIC; Start 02/03/17 at 17:30 Insulin Glargine (Lantus) 15 unit DAILY@20 SC Last administered on 02/04/17 22 :40; Admin Dose 15 UNIT; Start 02/04/17 at 20:00 Heparin Sodium (Porcine) (Heparin (5000 Units/0.5 ml)) 5,000 unit BID SC Last administered on 02/05/17 09:22; Admin Dose 5,000 UNIT; Start 02/04/17 at 13:00 Amikacin Sulfate (Amikacin Iv Per Pharmacy) AMIKACIN PER PHARMACY NOTE XX ; Start 02/04/17 at 18:00 Acetaminophen (Tylenol Tab) 500 mg Q4H PRN PO PAIN AND OR ELEVATED TEMP; Start 02/04/17 at 20:00 Bisacodyl (Dulcolax) 5 mg DAILY PO Last administered on 02/05/17 09:17; Admin Dose 5 MG; Start 02/04/17 at 20:00 Clonidine (Catapres) 0.1 mg BID PO Last administered on 02/05/17 09:18; Admin Dose 0.1 MG; Start 02/04/17 at 21:00 Clopidogrel Bisulfate (plaVIX) 75 mg DAILY PO Last administered on 02/05/17 09 :17; Admin Dose 75 MG; Start 02/05/17 at 09:00 Docusate Sodium (Colace) 100 mg BID PO Last administered on 02/05/17 09:17; Admin Dose 100 MG; Start 02/04/17 at 21:00 Hydroxyzine HCl (Atarax) 10 mg Q6H PRN PO ITCHING; Start 02/04/17 at 20:00 Pantoprazole (Protonix Tab) 40 mg DAILY@06 PO Last administered on 02/05/17 06 :22; Admin Dose 40 MG; Start 02/05/17 at 06:00 Pyridoxine HCl (Vitamin B6) 50 mg DAILY PO Last administered on 02/05/17 09:17 ; Admin Dose 50 MG; Start 02/04/17 at 20:00 Silver Sulfadiazine 1 applic 1 applic BID TOP Last administered on 02/05/17 09 :34; Admin Dose 1 APPLIC; Start 02/05/17 at 09:00 Vancomycin HCl (Vancocin) 250 ml @ 125 mls/hr 16 IVPB ; Start 02/06/17 at 16:00 ; Stop 02/06/17 at 17:59 Mupirocin (Bactroban) 1 applic BID TOP ; Start 02/05/17 at 21:00; Stop 02/12/17 at 09:01 ODALIS CROSS MD February 05, 2017 13:23
--- NOTE | 2017-02-05 13:41 | CONS ---
Date/Time of Note Date/Time of Note DATE: 02/05/17 TIME: 13:32 Consult Date/Type/Reason Admit Date/Time February 03, 2017 at 06:21 Initial Consult Date 02/05/17 Type of Consultation: Coverage for Dr. Ortiz. Reason for Consultation Left LE cellulitis. Left heel ulcer, subcutaneous and unstageable. Subjective Pt with left LE cellulitis, left heel ulcer. Pain is managed. H/O right BKA. Objective Vital Signs Date Time Temp Pulse Resp B/P Pulse Ox O2 Delivery O2 Flow Rate FiO2 02/05/17 08:41 98.0 62 18 152/67 96 02/05/17 02:21 Room Air 02/04/17 21:00 2.0 Intake and Output 02/04/17 02/04/17 02/05/17 15:00 23:00 07:00 Intake Total 100 ml 1000 ml 240 ml Output Total 3000 ml Balance 100 ml -2000 ml 240 ml Exam Right BKA. Left LE foot/heel dressing D/C/I. Left foot/heel ulcer, subcutaneous and unstageable. Left foot, toe ulcers, involving epidermis. Results/Medications Result Diagram: 02/05/17 1100 02/05/17 1100 Results 24 hrs Laboratory Tests Test 02/04/17 17:12 02/04/17 22:31 02/05/17 02:13 02/05/17 04:47 Bedside Glucose 216 185 135 Random Vancomycin Level 21.5 Test 02/05/17 07:47 02/05/17 11:00 02/05/17 12:40 Bedside Glucose 98 111 White Blood Count 19.1 H Red Blood Count 2.85 L Hemoglobin 8.8 L Hematocrit 28.5 L Mean Corpuscular Volume 100.0 Mean Corpuscular Hemoglobin 30.9 Mean Corpuscular Hemoglobin Concent 30.9 L Red Cell Distribution Width 19.3 H Platelet Count 629 H Mean Platelet Volume 8.9 Neutrophils % 82.8 H Lymphocytes % 9.1 L Monocytes % 5.0 Eosinophils % 1.9 Basophils % 0.2 Nucleated Red Blood Cells % 0.2 H Neutrophils # 15.8 H Lymphocytes # 1.7 Monocytes # 1.0 H Eosinophils # 0.4 Basophils # 0.0 Nucleated Red Blood Cells # 0.0 Sodium Level 134 L Potassium Level 4.4 Chloride Level 99 Carbon Dioxide Level 28 Anion Gap 11 # Blood Urea Nitrogen 34 H Creatinine 3.64 H Glucose Level 123 Calcium Level 8.8 Phosphorus Level 4.4 Magnesium Level 2.1 Medications Current Medications Lorazepam (Ativan) 0.5 mg Q6H PRN IV ANXIETY; Start 02/03/17 at 09:30 Acetaminophen (Tylenol Tab) 650 mg Q6H PRN PO PAIN LEVEL 1-3 OR FEVER; Start at 09:30 Acetaminophen/ Hydrocodone Bitart ([place] (5/325)) 1 tab Q6H PRN PO PAIN LEVEL 4 -6; Start 02/03/17 at 09:30 Morphine Sulfate (morphine) 2 mg Q4H PRN IV PAIN LEVEL 7-10; Start 02/03/17 at 09:30 Famotidine (Pepcid) 20 mg Q24H PO Last administered on 02/04/17 22:36; Admin Dose 20 MG; Start 02/03/17 at 21:00 Hydralazine HCl (Apresoline) 10 mg Q6H PRN IV SBP>160 Last administered on 02/05 02:50; Admin Dose 10 MG; Start 02/03/17 at 09:30 Diagnostic Test (Pha) (Accu-Chek) 1 ea 02 XX ; Start 02/04/17 at 02:00 Miscellaneous Information 1 ea NOTE XX ; Start 02/03/17 at 10:00 Glucose (Glutose) 15 gm Q15M PRN PO DECREASED GLUCOSE; Start 02/03/17 at 10:00 Glucose (Glutose) 22.5 gm Q15M PRN PO DECREASED GLUCOSE; Start 02/03/17 at 10: 00 Dextrose (D50w Syringe) 25 ml Q15M PRN IV DECREASED GLUCOSE; Start 02/03/17 at 10:00 Dextrose (D50w Syringe) 50 ml Q15M PRN IV DECREASED GLUCOSE; Start 02/03/17 at 10:00 Glucagon (Glucagen) 1 mg Q15M PRN IM DECREASED GLUCOSE; Start 02/03/17 at 10:00 Glucose (Glutose) 15 gm Q15M PRN BUCCAL DECREASED GLUCOSE; Start 02/03/17 at 10 :00 Atorvastatin Calcium (Lipitor) 10 mg HS PO Last administered on 02/04/17 22:35 ; Admin Dose 10 MG; Start 02/03/17 at 21:00 Losartan Potassium (Cozaar) 100 mg DAILY PO Last administered on 02/05/17 09: 19; Admin Dose 100 MG; Start 02/03/17 at 11:00 Multivit/Ca Carb/ B Cmplx/FA/Prenat (Zeynep-Emmanuel) 1 tab DAILY PO Last administered on 02/05/17 09:17; Admin Dose 1 TAB; Start 02/04/17 at 09:00 Isoniazid (Isoniazid) 300 mg DAILY PO Last administered on 02/05/17 09:18; Admin Dose 300 MG; Start 02/03/17 at 11:00 Hydralazine HCl (Apresoline) 25 mg TID PO Last administered on 02/05/17 09:18 ; Admin Dose 25 MG; Start 02/03/17 at 13:00 Polyethylene Glycol (Miralax) 17 gm BID PO Last administered on 02/05/17 09:20 ; Admin Dose 17 GM; Start 02/03/17 at 21:00 Hydroxyzine HCl (Atarax) 25 mg Q6H PRN PO ITCHING; Start 02/03/17 at 11:00 Carvedilol (Coreg) 6.25 mg BID PO Last administered on 02/05/17 09:19; Admin Dose 6.25 MG; Start 02/03/17 at 21:00 Folic Acid (Folic Acid) 1 mg DAILY PO Last administered on 02/05/17 09:17; Admin Dose 1 MG; Start 02/04/17 at 09:00 Fluocinonide (Lidex E 0.05%/ Emoll Cr) APPLY SPARINGLY bid to... BID TOP Last administered on 02/04/17 08:33; Admin Dose 1 APPLIC; Start 02/03/17 at 17:30 Insulin Glargine (Lantus) 15 unit DAILY@20 SC Last administered on 02/04/17 22 :40; Admin Dose 15 UNIT; Start 02/04/17 at 20:00 Heparin Sodium (Porcine) (Heparin (5000 Units/0.5 ml)) 5,000 unit BID SC Last administered on 02/05/17 09:22; Admin Dose 5,000 UNIT; Start 02/04/17 at 13:00 Amikacin Sulfate (Amikacin Iv Per Pharmacy) AMIKACIN PER PHARMACY NOTE XX ; Start 02/04/17 at 18:00 Acetaminophen (Tylenol Tab) 500 mg Q4H PRN PO PAIN AND OR ELEVATED TEMP; Start 02/04/17 at 20:00 Bisacodyl (Dulcolax) 5 mg DAILY PO Last administered on 02/05/17 09:17; Admin Dose 5 MG; Start 02/04/17 at 20:00 Clonidine (Catapres) 0.1 mg BID PO Last administered on 02/05/17 09:18; Admin Dose 0.1 MG; Start 02/04/17 at 21:00 Clopidogrel Bisulfate (plaVIX) 75 mg DAILY PO Last administered on 02/05/17 09 :17; Admin Dose 75 MG; Start 02/05/17 at 09:00 Docusate Sodium (Colace) 100 mg BID PO Last administered on 02/05/17 09:17; Admin Dose 100 MG; Start 02/04/17 at 21:00 Hydroxyzine HCl (Atarax) 10 mg Q6H PRN PO ITCHING; Start 02/04/17 at 20:00 Pantoprazole (Protonix Tab) 40 mg DAILY@06 PO Last administered on 02/05/17 06 :22; Admin Dose 40 MG; Start 02/05/17 at 06:00 Pyridoxine HCl (Vitamin B6) 50 mg DAILY PO Last administered on 02/05/17 09:17 ; Admin Dose 50 MG; Start 02/04/17 at 20:00 Silver Sulfadiazine 1 applic 1 applic BID TOP Last administered on 02/05/17 09 :34; Admin Dose 1 APPLIC; Start 02/05/17 at 09:00 Vancomycin HCl (Vancocin) 250 ml @ 125 mls/hr 16 IVPB ; Start 02/06/17 at 16:00 ; Stop 02/06/17 at 17:59 Mupirocin (Bactroban) 1 applic BID TOP ; Start 02/05/17 at 21:00; Stop 02/12/17 at 09:01 Assessment/Plan Problems: (1) Left leg cellulitis Additional Assessment/Plan Right BKA. Left LE cellulitis. Continue IV Abx, Vanco and Amikacin as per ID/. Left foot/heel ulcer debridement, bedside, pending Consent. Left foot/heel ulcer, wound care, [facility]in,s and SSD --> PILY Ortega. Will f/u for bedside debridement. BAYLEE ABARCA DPM February 05, 2017 13:41
[2017-02-05] MEDS ORDERED: DEXTROSE 5% IVPB SCH (18:30)
[2017-02-05] MEDS ORDERED: AMIKACIN IVPB SCH (18:30)
--- NOTE | 2017-02-05 19:01 | PN ---
DATE: 02/05/2017 SUBJECTIVE: No events overnight. The patient is lying comfortably in bed. No fevers. WBC today 19.1, platelets 629, neutrophils 82.8. MICROBIOLOGY: Nares swab came back positive for MRSA. Blood left foot culture growing multi-drug resistant E. coli. INDWELLINGS: The patient has AV fistula. ANTIMICROBIALS: 1. Vancomycin. 2. Amikacin. PHYSICAL EXAMINATION: GENERAL: Well-developed, elderly woman in no distress. HEENT: Head atraumatic, normocephalic. Sclerae anicteric. Buccal mucosa dry. NECK: Supple. CHEST: Rise symmetrical. Breath sounds diminished to bases. HEART: S1, S2. ABDOMEN: Soft. Bowel tones present. EXTREMITIES: With multiple necrotic wounds on her left lower extremity. ASSESSMENT: 1. Systemic inflammatory response syndrome with persistent leukocytosis. 2. Left lower extremity cellulitis, rule out abscess. 3. End-stage renal disease, hemodialysis dependent. 4. Diabetes. 5. Anemia. 6. Methicillin-resistant Staphylococcus aureus-positive nares colonization. 7. ALLERGY TO PENICILLIN. PLAN: The patient remains stable. Continue present care. Continue on current antibiotics pending debridement. Follow recommendations of consultants. Dictated By: LY MULLINS [employer] for DIANA STERN/CELESTINO Conf#: [id number] DID#: [id number] MTDD
[2017-02-05 20:24] VITALS: BP 123/50; RESP 18
[2017-02-05] MEDS: INSULIN GLARGINE [LANtus] 3 ML PEN SC SCH (22:03)
[2017-02-05] MEDS: ATORVASTATIN 10 MG TAB PO SCH (22:08)
[2017-02-05] MEDS: FAMOTIDINE 20 MG TAB PO SCH (22:08)
[2017-02-05] MEDS: MUPIROCIN 2% 22 GM OINT TOP SCH (22:08)
[2017-02-06] VITALS (12 sets, daily range): BP systolic 136–180; BP diastolic 56–75; PULSE 62–78; RESP 18–19
[2017-02-06] MEDS: ACCU-CHEK XX SCH ×2 (02:00→22:49)
[2017-02-06] MEDS: PANTOPRAZOLE (EC) 40 MG TAB PO SCH (05:59)
[2017-02-06] MEDS: INSULIN ASPART [NOVOLOG] 3 ML PEN SC SCH ×7 (07:53→21:00)
[2017-02-06] MEDS: SEVELAMER 800 MG TAB PO SCH ×3 (07:55→17:52)
[2017-02-06] MEDS ORDERED: AMIKACIN 350 MG in SOD CHLORIDE 0.9% 100 ML IVPB SCH (09:00)
[2017-02-06] MEDS: ISONIAZID 300 MG TAB PO SCH (09:24)
[2017-02-06] MEDS: FOLIC ACID 1 MG TAB PO SCH (09:24)
[2017-02-06] MEDS: BISACODYL (EC) 5 MG TAB PO SCH (09:24)
[2017-02-06] MEDS: CLOPIDOGREL 75 MG TAB PO SCH (09:24)
[2017-02-06] MEDS: PYRIDOXINE 50 MG TAB PO SCH (09:24)
[2017-02-06] MEDS: MULTIVIT/CA CARB/B CMPLX/FA TAB PO SCH (09:24)
[2017-02-06] MEDS: LOSARTAN 50 MG TAB PO SCH (09:25)
[2017-02-06] MEDS: DOCUSATE SODIUM 100 MG CAP PO SCH ×2 (09:25→21:46)
[2017-02-06] MEDS: HEPARIN 5,000 UNIT/0.5 ML VIAL SC SCH ×2 (09:26→21:43)
[2017-02-06] MEDS: FLUOCINONIDE 0.05%/EMOLL 15 GM CR TOP SCH ×2 (09:29→21:49)
[2017-02-06] MEDS: MUPIROCIN 2% 22 GM OINT TOP SCH ×2 (09:29→21:49)
[2017-02-06] MEDS: SILVER SULFADIAZINE 1% 25 GM CR TOP SCH ×2 (09:29→21:50)
[2017-02-06] MEDS: POLYETHYLENE GLYCOL 17 GM PACKET PO SCH ×2 (09:30→21:47)
[2017-02-06] MEDS ORDERED: EPOETIN 10000 UNITS/1 ML INJ (ESRD) SC SCH (09:30)
--- NOTE | 2017-02-06 11:50 | PN ---
DATE: 02/06/2017 SUBJECTIVE: The patient is stable, no acute events overnight. No fevers, chills, nausea, vomiting, no shortness of breath. OBJECTIVE: VITAL SIGNS: Blood pressure 123/50, respiration 18, pulse 60, temperature 98.6. HEENT: Head is normocephalic. NECK: Supple. HEART: Regular rate. LUNGS: Show diminished breath sounds at base. ABDOMEN: Soft, nontender to palpation, no rebound or guarding. EXTREMITIES: Shows right AKA. Left leg with a noted ulcer. DERMATOLOGIC: No rashes. MUSCULOSKELETAL: No joint effusions. NEUROLOGIC: No change in exam. MEDICATIONS: Have been reviewed. LABORATORY DATA: Has been reviewed. ASSESSMENT AND PLAN: 1. End-stage renal disease. The patient is scheduled for dialysis today for 3 hours on a 3K bath, calcium 2.5. 2. Sepsis secondary to left foot cellulitis. Continue current antibiotic regimen. Follow up with vascular surgery. 3. Anemia. Continue to monitor hemoglobin and hematocrit levels. Continue Epogen. 4. Mineral bone disorder. Continue to monitor calcium and phosphorus levels. 5. Hypertension. Current blood pressure regimen. 6. Status post below knee amputation. 7. Diabetes, continue current insulin regimen. 8. Encephalopathy. The patient is clinically improving. Continue medical management. Dictated By: LUIS RAMEY/CELESTINO Conf#: [id number] DID#: [id number]
--- NOTE | 2017-02-06 13:43 | CONS ---
Date/Time of Note Date/Time of Note DATE: 02/06/17 TIME: 13:41 Assessment/Plan Assessment/Plan Chief Complaint/Hosp Course SUBJECTIVE: No events overnight. The patient is lying comfortably in bed. No fevers. MICROBIOLOGY: Nares swab came back positive for MRSA. Blood left foot culture growing multiple bacteria INDWELLINGS: The patient has LUE AV fistula. ANTIMICROBIALS: 1. Vancomycin. 2. Amikacin. PHYSICAL EXAMINATION: GENERAL: Well-developed, elderly woman in no distress. HEENT: Head atraumatic, normocephalic. Sclerae anicteric. Buccal mucosa dry. NECK: Supple. CHEST: Rise symmetrical. Breath sounds diminished to bases. HEART: S1, S2. ABDOMEN: Soft. Bowel tones present. EXTREMITIES: With multiple necrotic wounds on her left lower extremity. ASSESSMENT: 1. Systemic inflammatory response syndrome with persistent leukocytosis. 2. Left lower extremity cellulitis, rule out abscess. 3. End-stage renal disease, hemodialysis dependent. 4. Diabetes. 5. Anemia. 6. Methicillin-resistant Staphylococcus aureus-positive nares colonization. 7. Rash==> r/o scabies 8. ALLERGY TO PENICILLIN. PLAN: The patient remains stable. Continue present care, antibiotics, f/u final cx's, podiatry rec-s, empiric Elimite jael FRENCH RN Problems: Consultation Date/Type/Reason Admit Date/Time February 03, 2017 at 06:21 Initial Consult Date 02/05/17 Type of Consultation: ID Exam/Review of Systems Vital Signs Vitals Vital Signs Date Time Temp Pulse Resp B/P Pulse Ox O2 Delivery O2 Flow Rate FiO2 02/06/17 10:09 62 160/70 02/06/17 08:00 98.4 18 94 02/05/17 22:00 Nasal Cannula 2.0 Intake and Output 02/05/17 02/05/17 02/06/17 15:00 23:00 07:00 Intake Total 212.1 ml 1120 ml 240 ml Balance 212.1 ml 1120 ml 240 ml Results Result Diagram: 02/05/17 1100 02/05/17 1100 Results 24 hrs Laboratory Tests Test 02/05/17 17:37 02/05/17 22:01 02/06/17 07:52 02/06/17 12:17 Bedside Glucose 189 139 108 128 Medications Medications Current Medications Lorazepam (Ativan) 0.5 mg Q6H PRN IV ANXIETY; Start 02/03/17 at 09:30 Acetaminophen (Tylenol Tab) 650 mg Q6H PRN PO PAIN LEVEL 1-3 OR FEVER; Start at 09:30 Acetaminophen/ Hydrocodone Bitart ([place] (5/325)) 1 tab Q6H PRN PO PAIN LEVEL 4 -6; Start 02/03/17 at 09:30 Morphine Sulfate (morphine) 2 mg Q4H PRN IV PAIN LEVEL 7-10; Start 02/03/17 at 09:30 Famotidine (Pepcid) 20 mg Q24H PO Last administered on 02/05/17 22:08; Admin Dose 20 MG; Start 02/03/17 at 21:00 Hydralazine HCl (Apresoline) 10 mg Q6H PRN IV SBP>160 Last administered on 02/05 02:50; Admin Dose 10 MG; Start 02/03/17 at 09:30 Diagnostic Test (Pha) (Accu-Chek) 1 ea 02 XX ; Start 02/04/17 at 02:00 Miscellaneous Information 1 ea NOTE XX ; Start 02/03/17 at 10:00 Glucose (Glutose) 15 gm Q15M PRN PO DECREASED GLUCOSE; Start 02/03/17 at 10:00 Glucose (Glutose) 22.5 gm Q15M PRN PO DECREASED GLUCOSE; Start 02/03/17 at 10: 00 Dextrose (D50w Syringe) 25 ml Q15M PRN IV DECREASED GLUCOSE; Start 02/03/17 at 10:00 Dextrose (D50w Syringe) 50 ml Q15M PRN IV DECREASED GLUCOSE; Start 02/03/17 at 10:00 Glucagon (Glucagen) 1 mg Q15M PRN IM DECREASED GLUCOSE; Start 02/03/17 at 10:00 Glucose (Glutose) 15 gm Q15M PRN BUCCAL DECREASED GLUCOSE; Start 02/03/17 at 10 :00 Atorvastatin Calcium (Lipitor) 10 mg HS PO Last administered on 02/05/17 22:08 ; Admin Dose 10 MG; Start 02/03/17 at 21:00 Losartan Potassium (Cozaar) 100 mg DAILY PO Last administered on 02/06/17 09: 25; Admin Dose 100 MG; Start 02/03/17 at 11:00 Multivit/Ca Carb/ B Cmplx/FA/Prenat (Zeynep-Emmanuel) 1 tab DAILY PO Last administered on 02/06/17 09:24; Admin Dose 1 TAB; Start 02/04/17 at 09:00 Isoniazid (Isoniazid) 300 mg DAILY PO Last administered on 02/06/17 09:24; Admin Dose 300 MG; Start 02/03/17 at 11:00 Hydralazine HCl (Apresoline) 25 mg TID PO Last administered on 02/05/17 22:10 ; Admin Dose 25 MG; Start 02/03/17 at 13:00 Polyethylene Glycol (Miralax) 17 gm BID PO Last administered on 02/06/17 09:30 ; Admin Dose 17 GM; Start 02/03/17 at 21:00 Hydroxyzine HCl (Atarax) 25 mg Q6H PRN PO ITCHING; Start 02/03/17 at 11:00 Carvedilol (Coreg) 6.25 mg BID PO Last administered on 02/05/17 22:10; Admin Dose 6.25 MG; Start 02/03/17 at 21:00 Folic Acid (Folic Acid) 1 mg DAILY PO Last administered on 02/06/17 09:24; Admin Dose 1 MG; Start 02/04/17 at 09:00 Fluocinonide (Lidex E 0.05%/ Emoll Cr) APPLY SPARINGLY bid to... BID TOP Last administered on 02/06/17 09:29; Admin Dose 1 APPLIC; Start 02/03/17 at 17:30 Insulin Glargine (Lantus) 15 unit DAILY@20 SC Last administered on 02/05/17 22 :03; Admin Dose 15 UNIT; Start 02/04/17 at 20:00 Heparin Sodium (Porcine) (Heparin (5000 Units/0.5 ml)) 5,000 unit BID SC Last administered on 02/06/17 09:26; Admin Dose 5,000 UNIT; Start 02/04/17 at 13:00 Amikacin Sulfate (Amikacin Iv Per Pharmacy) AMIKACIN PER PHARMACY NOTE XX ; Start 02/04/17 at 18:00 Acetaminophen (Tylenol Tab) 500 mg Q4H PRN PO PAIN AND OR ELEVATED TEMP; Start 02/04/17 at 20:00 Bisacodyl (Dulcolax) 5 mg DAILY PO Last administered on 02/06/17 09:24; Admin Dose 5 MG; Start 02/04/17 at 20:00 Clonidine (Catapres) 0.1 mg BID PO Last administered on 02/05/17 22:09; Admin Dose 0.1 MG; Start 02/04/17 at 21:00 Clopidogrel Bisulfate (plaVIX) 75 mg DAILY PO Last administered on 02/06/17 09 :24; Admin Dose 75 MG; Start 02/05/17 at 09:00 Docusate Sodium (Colace) 100 mg BID PO Last administered on 02/06/17 09:25; Admin Dose 100 MG; Start 02/04/17 at 21:00 Hydroxyzine HCl (Atarax) 10 mg Q6H PRN PO ITCHING; Start 02/04/17 at 20:00 Pantoprazole (Protonix Tab) 40 mg DAILY@06 PO Last administered on 02/06/17 05 :59; Admin Dose 40 MG; Start 02/05/17 at 06:00 Pyridoxine HCl (Vitamin B6) 50 mg DAILY PO Last administered on 02/06/17 09:24 ; Admin Dose 50 MG; Start 02/04/17 at 20:00 Silver Sulfadiazine 1 applic 1 applic BID TOP Last administered on 02/06/17 09 :29; Admin Dose 1 APPLIC; Start 02/05/17 at 09:00 Vancomycin HCl (Vancocin) 250 ml @ 125 mls/hr 16 IVPB ; Start 02/06/17 at 16:00 ; Stop 02/06/17 at 17:59 Mupirocin (Bactroban) 1 applic BID TOP Last administered on 02/06/17 09:29; Admin Dose 1 APPLIC; Start 02/05/17 at 21:00; Stop 02/12/17 at 09:01 LY MULLINS NP February 06, 2017 13:43
[2017-02-06] MEDS ORDERED: VANCOMYCIN 1 GM in NS 250 ML IVPB SCH (16:00)
--- NOTE | 2017-02-06 16:01 | PN ---
Date/Time of Note Date/Time of Note DATE: 02/06/17 TIME: 15:58 Assessment/Plan VTE Prophylaxis VTE Prophylaxis Intervention: heparin Lines/Catheters IV Catheter Type (from [facility]): [facility] Urinary Cath still in place: No Assessment/Plan Assessment/Plan 1. Left foot cellulitis, follow up with podiatry for debridement, on antibiotics 2. Sepsis secondary to left foot cellulitis. The patient is currently on antibiotic therapy. We will continue. 3. End-stage renal disease. The patient is status post hemodialysis. Will dialyze for 3 hours on a 3K bath, calcium 2.5. Anticipate next dialysis on Saturday. 4. DM, adjust insulin 02/04/2017. 5. Normocytic anemia, s/p 2 units PRBC, stable 6. Mineral bone disorder. Monitor calcium and phosphorus levels. 7. Hypertension. Continue current blood pressure regimen. 8. Right above-knee amputation. 9. Encephalopathy, sepsis related, resolved 10. Peripheral vascular disease, follow up with Dr. Mccormick for revascularization therapy 11. DVT prophylaxis: .heparin Subjective 24 Hr Interval Summary Free Text/Dictation afebrile. pain on left foot Exam/Review of Systems Vital Signs Vitals Vital Signs Date Time Temp Pulse Resp B/P Pulse Ox O2 Delivery O2 Flow Rate FiO2 02/06/17 10:09 62 160/70 02/06/17 08:00 98.4 18 94 02/05/17 22:00 Nasal Cannula 2.0 Intake and Output 02/05/17 02/05/17 02/06/17 15:00 23:00 07:00 Intake Total 212.1 ml 1120 ml 240 ml Balance 212.1 ml 1120 ml 240 ml Exam Constitutional: alert, oriented, well developed Head: atraumatic, normocephalic Eyes: EOMI, PERRL, nl conjunctiva, nl lids ENMT: nl external ears & nose, nl lips & teeth, nl nasal mucosa & septum Neck: non-tender, supple Respiratory: clear to auscultation, normal air movement, No congested cough, No crackles/rales, No diminished breath sounds, No intercostal retraction, No labored breathing, No other, No respirations, No tactile fremitus, No wheezing Cardiovascular: nl pulses, regular rate and rhythm, No S3, No S4, No bruits, No diastolic murmur, No edema, No gallop, No irregular rhythm, No jugular venous distention (JVD), No murmurs/extra sounds, No other, No rub, No systolic murmur Gastrointestinal: nl liver, spleen, non-tender, soft Extremities: other (right BKA, left heel lesion) Neurological: ATTENDING AMBULATORY CARE II-XII intact, nl mental status, nl speech, nl strength Results Result Diagram: 02/05/17 1100 02/05/17 1100 Results 24 hrs Laboratory Tests Test 02/05/17 17:37 02/05/17 22:01 02/06/17 07:52 02/06/17 12:17 Bedside Glucose 189 139 108 128 Medications Medications Current Medications Lorazepam (Ativan) 0.5 mg Q6H PRN IV ANXIETY; Start 02/03/17 at 09:30 Acetaminophen (Tylenol Tab) 650 mg Q6H PRN PO PAIN LEVEL 1-3 OR FEVER; Start at 09:30 Acetaminophen/ Hydrocodone Bitart ([place] (5/325)) 1 tab Q6H PRN PO PAIN LEVEL 4 -6; Start 02/03/17 at 09:30 Morphine Sulfate (morphine) 2 mg Q4H PRN IV PAIN LEVEL 7-10; Start 02/03/17 at 09:30 Famotidine (Pepcid) 20 mg Q24H PO Last administered on 02/05/17 22:08; Admin Dose 20 MG; Start 02/03/17 at 21:00 Hydralazine HCl (Apresoline) 10 mg Q6H PRN IV SBP>160 Last administered on 02/05 02:50; Admin Dose 10 MG; Start 02/03/17 at 09:30 Diagnostic Test (Pha) (Accu-Chek) 1 ea 02 XX ; Start 02/04/17 at 02:00 Miscellaneous Information 1 ea NOTE XX ; Start 02/03/17 at 10:00 Glucose (Glutose) 15 gm Q15M PRN PO DECREASED GLUCOSE; Start 02/03/17 at 10:00 Glucose (Glutose) 22.5 gm Q15M PRN PO DECREASED GLUCOSE; Start 02/03/17 at 10: 00 Dextrose (D50w Syringe) 25 ml Q15M PRN IV DECREASED GLUCOSE; Start 02/03/17 at 10:00 Dextrose (D50w Syringe) 50 ml Q15M PRN IV DECREASED GLUCOSE; Start 02/03/17 at 10:00 Glucagon (Glucagen) 1 mg Q15M PRN IM DECREASED GLUCOSE; Start 02/03/17 at 10:00 Glucose (Glutose) 15 gm Q15M PRN BUCCAL DECREASED GLUCOSE; Start 02/03/17 at 10 :00 Atorvastatin Calcium (Lipitor) 10 mg HS PO Last administered on 02/05/17 22:08 ; Admin Dose 10 MG; Start 02/03/17 at 21:00 Losartan Potassium (Cozaar) 100 mg DAILY PO Last administered on 02/06/17 09: 25; Admin Dose 100 MG; Start 02/03/17 at 11:00 Multivit/Ca Carb/ B Cmplx/FA/Prenat (Zeynep-Emmanuel) 1 tab DAILY PO Last administered on 02/06/17 09:24; Admin Dose 1 TAB; Start 02/04/17 at 09:00 Isoniazid (Isoniazid) 300 mg DAILY PO Last administered on 02/06/17 09:24; Admin Dose 300 MG; Start 02/03/17 at 11:00 Hydralazine HCl (Apresoline) 25 mg TID PO Last administered on 02/05/17 22:10 ; Admin Dose 25 MG; Start 02/03/17 at 13:00 Polyethylene Glycol (Miralax) 17 gm BID PO Last administered on 02/06/17 09:30 ; Admin Dose 17 GM; Start 02/03/17 at 21:00 Hydroxyzine HCl (Atarax) 25 mg Q6H PRN PO ITCHING; Start 02/03/17 at 11:00 Carvedilol (Coreg) 6.25 mg BID PO Last administered on 02/05/17 22:10; Admin Dose 6.25 MG; Start 02/03/17 at 21:00 Folic Acid (Folic Acid) 1 mg DAILY PO Last administered on 02/06/17 09:24; Admin Dose 1 MG; Start 02/04/17 at 09:00 Fluocinonide (Lidex E 0.05%/ Emoll Cr) APPLY SPARINGLY bid to... BID TOP Last administered on 02/06/17 09:29; Admin Dose 1 APPLIC; Start 02/03/17 at 17:30 Insulin Glargine (Lantus) 15 unit DAILY@20 SC Last administered on 02/05/17 22 :03; Admin Dose 15 UNIT; Start 02/04/17 at 20:00 Heparin Sodium (Porcine) (Heparin (5000 Units/0.5 ml)) 5,000 unit BID SC Last administered on 02/06/17 09:26; Admin Dose 5,000 UNIT; Start 02/04/17 at 13:00 Amikacin Sulfate (Amikacin Iv Per Pharmacy) AMIKACIN PER PHARMACY NOTE XX ; Start 02/04/17 at 18:00 Acetaminophen (Tylenol Tab) 500 mg Q4H PRN PO PAIN AND OR ELEVATED TEMP; Start 02/04/17 at 20:00 Bisacodyl (Dulcolax) 5 mg DAILY PO Last administered on 02/06/17 09:24; Admin Dose 5 MG; Start 02/04/17 at 20:00 Clonidine (Catapres) 0.1 mg BID PO Last administered on 02/05/17 22:09; Admin Dose 0.1 MG; Start 02/04/17 at 21:00 Clopidogrel Bisulfate (plaVIX) 75 mg DAILY PO Last administered on 02/06/17 09 :24; Admin Dose 75 MG; Start 02/05/17 at 09:00 Docusate Sodium (Colace) 100 mg BID PO Last administered on 02/06/17 09:25; Admin Dose 100 MG; Start 02/04/17 at 21:00 Hydroxyzine HCl (Atarax) 10 mg Q6H PRN PO ITCHING; Start 02/04/17 at 20:00 Pantoprazole (Protonix Tab) 40 mg DAILY@06 PO Last administered on 02/06/17 05 :59; Admin Dose 40 MG; Start 02/05/17 at 06:00 Pyridoxine HCl (Vitamin B6) 50 mg DAILY PO Last administered on 02/06/17 09:24 ; Admin Dose 50 MG; Start 02/04/17 at 20:00 Silver Sulfadiazine 1 applic 1 applic BID TOP Last administered on 02/06/17 09 :29; Admin Dose 1 APPLIC; Start 02/05/17 at 09:00 Vancomycin HCl (Vancocin) 250 ml @ 125 mls/hr 16 IVPB Last administered on 15:54; Admin Dose 125 MLS/HR; Start 02/06/17 at 16:00; Stop 02/06/17 at 17:59 Mupirocin (Bactroban) 1 applic BID TOP Last administered on 02/06/17t 09:29; Admin Dose 1 APPLIC; Start 02/05/17 at 21:00; Stop 02/12/17 at 09:01 Permethrin (Elimite 5% Cr) 1 applic ONCE TOP ; Start 02/06/17 at 21:00; Stop at 23:59 ODALIS CROSS MD February 06, 2017 16:01
[2017-02-06] MEDS: morphine 2 MG INJ IV PRN (16:45)
--- NOTE | 2017-02-06 18:18 | CONS ---
DATE OF ADMISSION: 02/03/2017 DATE OF CONSULTATION: 02/06/2017 SURGEON: KRIS ZUNIGA DPM. TURNSTILE COLLECTOR: None. PREOPERATIVE DIAGNOSIS: 1. Gangrene left heel. 2. Infected heel ulceration. 3. Cellulitis. 4. Peripheral arterial disease. 5. End-stage renal disease on hemodialysis. 6. Diabetes, poorly controlled. 7. Hypertension. 8. Right above-knee amputation. POSTOPERATIVE DIAGNOSIS: 1. Gangrene left heel. 2. Infected heel ulceration. 3. Cellulitis. 4. Peripheral arterial disease. 5. End-stage renal disease on hemodialysis. 6. Diabetes, poorly controlled. 7. Hypertension. 8. Right above-knee amputation. PROCEDURE PERFORMED: Excisional debridement, skin, subcutaneous tissue, muscle 10 x 7 cm. PATHOLOGY: Wound cultures. ANESTHESIA: None. ESTIMATED BLOOD LOSS: 10 mL. COMPLICATIONS: None. INDICATION FOR PROCEDURE: This is a 66-year-old female admitted for sepsis from infected heel ulcer ation. The patient with a polymicrobial infection including gram-negative rods, staph aureus with m ultiple drug resistant bacteria. The procedure is recommended to decrease the bacterial bioburden. Informed consent was obtained. Procedure performed at the bedside with nursing assistance. PROCEDURE IN DETAIL: The patient seen at bedside, was cleansed with Betadine and using a 15 blade, pickup and scissors. Excisional debridement performed excising the eschar which consisted of skin a nd subcutaneous tissue, measuring 10 x 7 cm. The abductor and digiti minimi were necrotic, malodoro us and a portion of this was excised. The deep cultures obtained and the wound was irrigated with s kp and Betadine. The patient had estimated blood loss of 10 to 15 mL. Hemostasis achieved with compression and applied topical antimicrobial ointment, 4 x 4 gauze, Kerlix. The patient tolerated the procedure well. POSTOPERATIVE PLAN: We will follow up on the culture results. The patient currently being followed by ID and on vancomycin, amikacin and using topical Silvadene. Awaiting further recommendations fr om a vascular standpoint, likely to require staged debridement and outpatient followup. Dictated By: KRIS RODRIGUEZ/CELESTINO Conf#: [id number] DID#: [id number]
[2017-02-06] MEDS ORDERED: PERMETHRIN 5% 60 GM CR TOP SCH (21:00)
[2017-02-06] MEDS: INSULIN GLARGINE [LANtus] 3 ML PEN SC SCH (21:41)
[2017-02-06] MEDS: FAMOTIDINE 20 MG TAB PO SCH (21:47)
[2017-02-06] MEDS: ATORVASTATIN 10 MG TAB PO SCH (21:47)
[2017-02-06] MEDS: hydrOXYzine HCL 25 MG TAB PO PRN (22:10)
[2017-02-07] MEDS: PANTOPRAZOLE (EC) 40 MG TAB PO SCH (05:41)
[2017-02-07] MEDS: INSULIN ASPART [NOVOLOG] 3 ML PEN SC SCH ×7 (08:00→21:00)
[2017-02-07 08:16] VITALS: BP 175/64; RESP 22
[2017-02-07] MEDS: SILVER SULFADIAZINE 1% 25 GM CR TOP SCH ×2 (09:00→21:10)
[2017-02-07] MEDS: SEVELAMER 800 MG TAB PO SCH ×3 (09:07→17:28)
[2017-02-07] MEDS: DOCUSATE SODIUM 100 MG CAP PO SCH ×2 (09:08→21:07)
[2017-02-07] MEDS: PYRIDOXINE 50 MG TAB PO SCH (09:09)
[2017-02-07] MEDS: BISACODYL (EC) 5 MG TAB PO SCH (09:09)
[2017-02-07] MEDS: LOSARTAN 50 MG TAB PO SCH (09:09)
[2017-02-07] MEDS: ISONIAZID 300 MG TAB PO SCH (09:09)
[2017-02-07] MEDS: CLOPIDOGREL 75 MG TAB PO SCH (09:09)
[2017-02-07] MEDS: MULTIVIT/CA CARB/B CMPLX/FA TAB PO SCH (09:09)
[2017-02-07] MEDS: POLYETHYLENE GLYCOL 17 GM PACKET PO SCH ×2 (09:09→21:06)
[2017-02-07] MEDS: FOLIC ACID 1 MG TAB PO SCH (09:09)
[2017-02-07] MEDS: MUPIROCIN 2% 22 GM OINT TOP SCH ×2 (09:11→21:10)
[2017-02-07] MEDS: FLUOCINONIDE 0.05%/EMOLL 15 GM CR TOP SCH ×2 (09:12→21:10)
[2017-02-07] MEDS: HEPARIN 5,000 UNIT/0.5 ML VIAL SC SCH ×2 (09:15→21:05)
--- NOTE | 2017-02-07 10:00 | PN ---
DATE: 02/07/2017 SUBJECTIVE: The patient had hemodialysis yesterday with infiltration of the patient's left AV fistu la. No other events noted. No hemoptysis, hematemesis, or hematochezia. OBJECTIVE: VITAL SIGNS: Blood pressure is ____, respirations 22, pulse 66, temperature 98.4. HEENT: Head is normocephalic. NECK: Supple. HEART: Regular rate. LUNGS: Show diminished breath sounds at the base. ABDOMEN: Soft, nontender to palpation. No rebound or guarding. EXTREMITIES: Positive for right AKA. Left leg has noted gangrenous ulcer. DERMATOLOGIC: No rashes. MUSCULOSKELETAL: The patient's AV fistula has a good thrill and bruit, no evidence of hematoma. NEUROLOGIC: No focal deficits. MEDICATIONS: Have been reviewed. LABORATORY DATA: Have been reviewed. No new labs. ASSESSMENT AND PLAN: 1. End-stage renal disease. The patient will be scheduled for dialysis tomorrow for 3 hours, 3K ba th, calcium 2.5, ultrafiltrate as tolerated. 2. Sepsis secondary to left foot cellulitis. Continue current antibiotic regimen. Follow up with vascular surgery. 3. Anemia. Continue to monitor hemoglobin and hematocrit levels. Continue Epogen. 4. Mineral bone disorder. Continue to monitor calcium and phosphorus levels. 5. Hypertension. Current blood pressure regimen. 6. Status post right above-knee amputation. 7. Diabetes, continue Accu-Cheks and insulin sliding scale. 8. Encephalopathy. Continue current medical management. Dictated By: LUIS RAMEY/CELESTINO Conf#: [id number] DID#: [id number]
--- NOTE | 2017-02-07 14:28 | PN ---
DATE: 02/07/2017 SUBJECTIVE: No events overnight. The patient is awake, looks comfortable, eating lunch. No fevers . MICROBIOLOGY: Wound culture growing E. coli, MRSA, Proteus mirabilis and Corynebacterium species. ANTIMICROBIALS: The patient is on: 1. Amikacin. 2. Vancomycin. PHYSICAL EXAMINATION: GENERAL: This is a well-developed, obese, elderly woman who is awake, in no distress. HEENT: Head atraumatic, normocephalic. Sclerae anicteric. Buccal mucosa dry. NECK: Supple, trachea midline. CHEST: Rise symmetrical. Breath sounds diminished to bases. HEART: S1, S2. ABDOMEN: Soft. Bowel sounds present. ASSESSMENT: 1. Left lower extremity acute on chronic cellulitis with nonhealing wounds. 2. Left heel gangrene. 3. End-stage renal disease, hemodialysis dependent. 4. Diabetes. 5. Hypertension. 6. History of right above-knee amputation. 7. Methicillin-resistant Staphylococcus aureus nares colonization. PLAN: The patient remains stable, status post debridement yesterday by Dr. Ortiz. She is on appr opriate antimicrobials which we are going to continue. Continue Bactroban to nares. Dictated By: LY MULLINS GROUNDS MAINTENANCE SUPERVISOR for DIANA STERN/CELESTINO Conf#: [id number] DID#: [id number]
--- NOTE | 2017-02-07 14:44 | PN ---
Date/Time of Note Date/Time of Note DATE: 02/07/17 TIME: 14:41 Assessment/Plan VTE Prophylaxis VTE Prophylaxis Intervention: heparin Lines/Catheters IV [facility]from [facility] Sal[facility] Urinary Cath still in place: No Assessment/Plan Assessment/Plan 1. Left foot cellulitis, s/p debridement on 02/06/2017, culture reviewed on proper antibiotics, follow up with wound care and ID 2. Sepsis secondary to left foot cellulitis. The patient is currently on antibiotic therapy. We will continue. 3. End-stage renal disease. The patient is status post hemodialysis. Will dialyze for 3 hours on a 3K bath, calcium 2.5. Anticipate next dialysis on Saturday. 4. DM, adjust insulin 02/04/2017. 5. Normocytic anemia, s/p 2 units PRBC, stable 6. Mineral bone disorder. Monitor calcium and phosphorus levels. 7. Hypertension. Continue current blood pressure regimen. 8. Right above-knee amputation. 9. Encephalopathy, sepsis related, resolved 10. Peripheral vascular disease, follow up with Dr. Mccormick for revascularization therapy 11. MRSA in nares, on bactroban 12. DVT prophylaxis: .heparin Subjective 24 Hr Interval Summary Free Text/Dictation left heel pain. afebrile Exam/Review of Systems Vital Signs Vitals Vital Signs Date Time Temp Pulse Resp B/P Pulse Ox O2 Delivery O2 Flow Rate FiO2 02/07/17 08:16 98.4 66 22 175/64 100 02/05/17 22:00 Nasal Cannula 2.0 Intake and Output 02/06/17 02/06/17 02/07/17 15:00 23:00 07:00 Intake Total 1310 ml 351.4 ml Output Total 2500 ml Balance -1190 ml 351.4 ml Exam Constitutional: alert, oriented, well developed Head: atraumatic, normocephalic Eyes: EOMI, nl conjunctiva, nl lids ENMT: nl external ears & nose, nl lips & teeth, nl nasal mucosa & septum Neck: non-tender, supple Respiratory: clear to auscultation, normal air movement, No congested cough, No crackles/rales, No diminished breath sounds, No intercostal retraction, No labored breathing, No other, No respirations, No tactile fremitus, No wheezing Cardiovascular: nl pulses, regular rate and rhythm, No S3, No S4, No bruits, No diastolic murmur, No edema, No gallop, No irregular rhythm, No jugular venous distention (JVD), No murmurs/extra sounds, No other, No rub, No systolic murmur Gastrointestinal: nl liver, spleen, non-tender, soft, No ascites, No bowel sounds, No distended, No firm, No hepatomegaly, No mass , No other, No rebound or guarding, No splenomegaly, No surgical scars, No tender Musculoskeletal: nl extremities to inspection Extremities: normal pulses, No calf tenderness, No clubbing, No cyanosis, No edema, No other, No palpable cord, No pitting pedal edema, No tenderness Neurological: BUNDLE SHAKER II-XII intact, nl mental status, nl speech, nl strength Results Result Diagram: 02/05/17 1100 02/05/17 1100 Results 24 hrs Laboratory Tests Test 02/06/17 17:46 02/06/17 21:35 02/07/17 08:08 02/07/17 11:54 Bedside Glucose 126 125 90 67 L Test 02/07/17 12:26 02/07/17 13:59 Bedside Glucose 91 128 Medications Medications Current Medications Lorazepam (Ativan) 0.5 mg Q6H PRN IV ANXIETY; Start 02/03/17 at 09:30 Acetaminophen (Tylenol Tab) 650 mg Q6H PRN PO PAIN LEVEL 1-3 OR FEVER; Start at 09:30 Acetaminophen/ Hydrocodone Bitart ([place] (5/325)) 1 tab Q6H PRN PO PAIN LEVEL 4 -6; Start 02/03/17 at 09:30 Morphine Sulfate (morphine) 2 mg Q4H PRN IV PAIN LEVEL 7-10 Last administered on 02/06/17 16:45; Admin Dose 2 MG; Start 02/03/17 at 09:30 Famotidine (Pepcid) 20 mg Q24H PO Last administered on 02/06/17 21:47; Admin Dose 20 MG; Start 02/03/17 at 21:00 Hydralazine HCl (Apresoline) 10 mg Q6H PRN IV SBP>160 Last administered on 02/05 02:50; Admin Dose 10 MG; Start 02/03/17 at 09:30 Diagnostic Test (Pha) (Accu-Chek) 1 ea 02 XX ; Start 02/04/17 at 02:00 Miscellaneous Information 1 ea NOTE XX ; Start 02/03/17 at 10:00 Glucose (Glutose) 15 gm Q15M PRN PO DECREASED GLUCOSE; Start 02/03/17 at 10:00 Glucose (Glutose) 22.5 gm Q15M PRN PO DECREASED GLUCOSE; Start 02/03/17 at 10: 00 Dextrose (D50w Syringe) 25 ml Q15M PRN IV DECREASED GLUCOSE; Start 02/03/17 at 10:00 Dextrose (D50w Syringe) 50 ml Q15M PRN IV DECREASED GLUCOSE; Start 02/03/17 at 10:00 Glucagon (Glucagen) 1 mg Q15M PRN IM DECREASED GLUCOSE; Start 02/03/17 at 10:00 Glucose (Glutose) 15 gm Q15M PRN BUCCAL DECREASED GLUCOSE; Start 02/03/17 at 10 :00 Atorvastatin Calcium (Lipitor) 10 mg HS PO Last administered on 02/06/17 21:47 ; Admin Dose 10 MG; Start 02/03/17 at 21:00 Losartan Potassium (Cozaar) 100 mg DAILY PO Last administered on 02/07/17 09: 09; Admin Dose 100 MG; Start 02/03/17 at 11:00 Multivit/Ca Carb/ B Cmplx/FA/Prenat (Zeynep-Emmanuel) 1 tab DAILY PO Last administered on 02/07/17 09:09; Admin Dose 1 TAB; Start 02/04/17 at 09:00 Isoniazid (Isoniazid) 300 mg DAILY PO Last administered on 02/07/17 09:09; Admin Dose 300 MG; Start 02/03/17 at 11:00 Hydralazine HCl (Apresoline) 25 mg TID PO Last administered on 02/07/17 14:03 ; Admin Dose 25 MG; Start 02/03/17 at 13:00 Polyethylene Glycol (Miralax) 17 gm BID PO Last administered on 02/07/17 09:09 ; Admin Dose 17 GM; Start 02/03/17 at 21:00 Hydroxyzine HCl (Atarax) 25 mg Q6H PRN PO ITCHING Last administered on 22:10; Admin Dose 25 MG; Start 02/03/17 at 11:00 Carvedilol (Coreg) 6.25 mg BID PO Last administered on 02/07/17 09:09; Admin Dose 6.25 MG; Start 02/03/17 at 21:00 Folic Acid (Folic Acid) 1 mg DAILY PO Last administered on 02/07/17 09:09; Admin Dose 1 MG; Start 02/04/17 at 09:00 Fluocinonide (Lidex E 0.05%/ Emoll Cr) APPLY SPARINGLY bid to... BID TOP Last administered on 02/07/17 09:12; Admin Dose 1 APPLIC; Start 02/03/17 at 17:30 Insulin Glargine (Lantus) 15 unit DAILY@20 SC Last administered on 02/06/17 21 :41; Admin Dose 15 UNIT; Start 02/04/17 at 20:00 Heparin Sodium (Porcine) (Heparin (5000 Units/0.5 ml)) 5,000 unit BID SC Last administered on 02/07/17 09:15; Admin Dose 5,000 UNIT; Start 02/04/17 at 13:00 Amikacin Sulfate (Amikacin Iv Per Pharmacy) AMIKACIN PER PHARMACY NOTE XX ; Start 02/04/17 at 18:00 Acetaminophen (Tylenol Tab) 500 mg Q4H PRN PO PAIN AND OR ELEVATED TEMP Last administered on 02/06/17 22:10; Admin Dose 500 MG; Start 02/04/17 at 20:00 Bisacodyl (Dulcolax) 5 mg DAILY PO Last administered on 02/07/17 09:09; Admin Dose 5 MG; Start 02/04/17 at 20:00 Clonidine (Catapres) 0.1 mg BID PO Last administered on 02/07/17 09:08; Admin Dose 0.1 MG; Start 02/04/17 at 21:00 Clopidogrel Bisulfate (plaVIX) 75 mg DAILY PO Last administered on 02/07/17 09 :09; Admin Dose 75 MG; Start 02/05/17 at 09:00 Docusate Sodium (Colace) 100 mg BID PO Last administered on 02/07/17 09:08; Admin Dose 100 MG; Start 02/04/17 at 21:00 Hydroxyzine HCl (Atarax) 10 mg Q6H PRN PO ITCHING; Start 02/04/17 at 20:00 Pantoprazole (Protonix Tab) 40 mg DAILY@06 PO Last administered on 02/07/17 05 :41; Admin Dose 40 MG; Start 02/05/17 at 06:00 Pyridoxine HCl (Vitamin B6) 50 mg DAILY PO Last administered on 02/07/17 09:09 ; Admin Dose 50 MG; Start 02/04/17 at 20:00 Silver Sulfadiazine (Thermazene 1% 25 Gm) 1 applic BID TOP Last administered on 02/06/17 21:50; Admin Dose 1 APPLIC; Start 02/05/17 at 09:00 Mupirocin (Bactroban) 1 applic BID TOP Last administered on 02/07/17 09:11; Admin Dose 1 APPLIC; Start 02/05/17 at 21:00; Stop 02/12/17 at 09:01 ODALIS CROSS MD February 07, 2017 14:44
[2017-02-07] MEDS ORDERED: Amikacin Iv Per Pharmacy XX (16:22)
[2017-02-07] MEDS ORDERED: Vancomycin Iv Per Pharmacy XX (16:22)
--- NOTE | 2017-02-07 16:30 | DS ---
Date/Time of Note Date/Time of Note DATE: 02/07/17 TIME: 16:22 Discharge Summary Admission/Discharge Info Admit Date/Time February 03, 2017 at 06:21 Discharge Date/Time Final Diagnosis 1. Left foot cellulitis, s/p debridement on 02/06/2017, culture reviewed on proper antibiotics, follow up with wound care and ID 2. Sepsis secondary to left foot cellulitis. The patient is currently on antibiotic therapy. We will continue. 3. End-stage renal disease. The patient is status post hemodialysis. Will dialyze for 3 hours on a 3K bath, calcium 2.5. Anticipate next dialysis on Saturday. 4. DM, adjust insulin 02/04/2017. 5. Normocytic anemia, s/p 2 units PRBC, stable 6. Mineral bone disorder. Monitor calcium and phosphorus levels. 7. Hypertension. Continue current blood pressure regimen. 8. Right above-knee amputation. 9. Encephalopathy, sepsis related, resolved 10. Peripheral vascular disease, follow up with Dr. Mccormick for revascularization therapy 11. MRSA in nares, on bactroban 12. DVT prophylaxis: .heparin Patient Condition: Stable Hospital Course This is a 66-year-old alf resident who is bedridden with multiple comorbidities including end-stage renal disease on hemodialysis, diabetes mellitus, congestive heart failure, essential hypertension, and left lower extremity nonhealing diabetic wound who was brought to the emergency room because of altered level of consciousness. The patient got hemodialysis as scheduled on Saturday. The patient was feeling short of breath towards the evening of 02/02/2017. The patient was also hallucinating as per the patient's family who was at the bedside. The patient is not the best historian. Hence, I was unable to elicit further information from the patient. All the information was obtained by review of the patient's chart as well as by talking to the patient's family who was at the bedside. In the emergency room, the patient was noticed to have significant leukocytosis with a WBC of 20.3. The patient was also noticed to be anemic with a hemoglobin and hematocrit of 7.3 and 24.2 respectively. The patient underwent a chest x-ray that showed cardiomegaly. The patient's CT scan of the chest showed cardiomegaly and pulmonary venous congestion. The patient's brain CT scan was negative for any acute intracranial findings. The patient underwent a blood gas analysis in the emergency room that showed no significant hypoxia. The patient was treated with IV vancomycin and IV cefepime in the emergency room. The patient was transfused with 2 units of PRBC. For the left heel wound, patient had surgical debridement per clinical product specialist on 02/06. The wound culture positive with E. coli, MRSA, Proteus mirabilis and Corynebacterium species, that are covered and treated with vancomycin and amikacin. Patient will follow up with clinical product specialist, wound care, and ID. Arterial US indicates peripheral vascular disease. Patient will need input from vascular surgery for further management. Patient is transferred to [facility] for insurance issue. PROCEDURE: US Lower extremity arterial. CLINICAL INDICATION: Peripheral arterial disease. left heel ulceration. The patient is status post a right [id number] amputation. TECHNIQUE: Multiple sonographic images of the bilateral lower extremity arteries was obtained utilizing grayscale, color-flow, and doppler imaging. The images were reviewed on a PACS workstation. COMPARISON: None. FINDINGS: Velocities and waveforms were obtained as described below. RIGHT LEG: Common femoral artery: 81.4 cm/s; biphasic waveforms Proximal superficial femoral artery: 94.4 cm/s; biphasic waveforms Mid superficial femoral artery: 52.2 cm/s; biphasic waveforms Distal superficial femoral artery: 96.1 cm/s; biphasic waveforms Popliteal artery: 58.4 cm/s; biphasic waveforms LEFT LEG: Common femoral artery: 126.3 cm/s; biphasic waveforms Proximal superficial femoral artery: 138 cm/s; biphasic waveforms Mid superficial femoral artery: 96.6 cm/s; monophasic waveforms Distal superficial femoral artery: 95.1 cm/s; monophasic waveforms Popliteal artery: 78.3 cm/s; monophasic waveforms Posterior tibial artery: 46 cm/s; monophasic waveforms Dorsalis pedis artery: 50.2 cm/s; monophasic waveforms There is extensive calcified plaque within the lower extremities bilaterally. Left CASPER: 1.0 IMPRESSION: 1. Abnormal examination demonstrating diffusely dampened waveforms in both lower extremities, at least partially related to inflow disease. 2. Monophasic waveforms extending from the left mid superficial femoral artery distally, likely related to a a combination of inflow and intrinsic disease. RPTAT: GG .Tanner San MD, Date Time Electronically viewed and signed by .Tanner San MD, on 02/04/2017 13:35 .P/ CC: KRIS ZUNIGA DPM Home Meds Active Scripts [Vancomycin Iv Per Pharmacy] 1 EA EACH No Conflict Check, 0 EA XX .PER PROTOCOL for 10 Days Prov:ODALIS RCOSS MD 02/07/17 [Amikacin Iv Per Pharmacy] 1 EA EACH No Conflict Check, 0 EA XX NOTE, #1 Prov:ODALIS CROSS MD 02/07/17 Reported Medications Bisacodyl* (Dulcolax*) 5 Mg Tablet.dr, 5 MG PO DAILY for CONSTIPATION, TAB 02/03/17 Hydralazine Hcl* (Hydralazine Hcl*) 25 Mg Tab, 25 MG PO TID, #90 TAB 02/03/17 Polyethylene Glycol* (Miralax*) 17 Gm Powd.pack, 17 GM PO BID, #60 PACKET 02/03/17 Pantoprazole* (Pantoprazole*) 40 Mg Tablet.dr, 40 MG PO DAILY Y for prn, TAB 02/03/17 Multivit/Ca Carb/B Cmplx/Fa* (Zeynep-Emmanuel*) 1 Tab Tab, 1 TAB PO DAILY, TAB 02/03/17 Losartan Potassium* (Losartan Potassium*) 100 Mg Tablet, 100 MG PO DAILY, TAB 02/03/17 Isoniazid* (Isoniazid*) 300 Mg Tablet, 300 MG PO DAILY, TAB 02/03/17 Insulin Aspart* (Novolog Insulin Pen*) 100 Unit/Ml Soln, 0 SC WITH DINNER, EA 02/03/17 Heparin Sod (Porcine) (Heparin) 1,000 Unit/Ml Soln, 5000 UNIT SUBCUTANE BID 02/03/17 Pyridoxine Hcl (Vitamin B6) 50 Mg Tab, 50 MG PO DAILY, TAB 02/03/17 Folic Acid* (Folic Acid*) 1 Mg Tablet, 1 MG PO DAILY, TAB 02/03/17 Docusate Sodium* (Docusate Sodium*) 100 Mg Capsule, 100 MG PO BID, #60 CAP 02/03/17 Clopidogrel Bisulfate (Clopidogrel) 75 Mg Tablet, 75 MG PO DAILY, #30 TAB 02/03/17 Clonidine Hcl* (Clonidine Hcl*) 0.1 Mg Tab, 0.1 MG PO BID, TAB 02/03/17 Carvedilol* (Carvedilol*) 6.25 Mg Tablet, 6.25 MG PO BID, #60 TAB 02/03/17 Amlodipine Besylate* (Amlodipine Besylate*) 10 Mg Tablet, 10 MG PO, #30 TAB 02/03/17 Hydroxyzine Hcl* (Hydroxyzine Hcl*) 10 Mg Tablet, 10 MG PO Q6H Y for ITCHING, # 30 TAB 02/03/17 Bisacodyl (Dulcolax) 10 Mg Supp.rect, 10 MG RC PRN, SUPP.RECT 02/03/17 Acetaminophen* (Acetaminophen*) 500 MG Extra Strength Tablet, 500 MG PO Q4H Y for PAIN AND OR ELEVATED TEMP, TAB 02/03/17 Simvastatin (Simvastatin) 20 Mg Tablet, 20 MG PO QHS, #30 TAB 02/03/17 Sevelamer Hcl* (Renagel*) 800 Mg Tablet, 3200 MG PO WITH MEALS, TAB 02/03/17 Discontinued Reported Medications Hydralazine Hcl* (Hydralazine Hcl*) 50 Mg Tablet, 50 MG PO Q8, #90 TAB 02/03/17 Follow-up Plan internal medicine, podiatry, vascular surgery, ID and wound care follow up Primary Care Provider Not On Staff Doctor Pending Labs Laboratory Tests Test 02/06/17 17:46 02/06/17 21:35 02/07/17 08:08 02/07/17 11:54 Bedside Glucose 126mg/dL (70-220) 125mg/dL (70-220) 90mg/dL (70-220) 67mg/dL (70-220) Test 02/07/17 12:26 02/07/17 13:59 02/07/17 16:14 Bedside Glucose 91mg/dL (70-220) 128mg/dL (70-220) 132mg/dL (70-220) ODALIS CROSS MD February 07, 2017 16:30
[2017-02-07 16:32] LABS: ADD SCAN DIFF NO
[2017-02-07 16:36] LABS: BASOPHIL # 0.1 10^3/ul (0.0-0.1); BASOPHILS % 0.3 % (0.0-2.0); EOSINOPHILS # 0.4 10^3/ul (0.0-0.5); EOSINOPHILS % 2.3 % (0.0-7.0); HEMATOCRIT 29.4 % (37.0-47.0); LYMPHOCYTES # 1.8 10^3/ul (0.8-2.9); LYMPHOCYTES % 9.7 % (15.0-51.0); MEAN CORPUSCULAR HEMOGLOBIN 30.8 pg (29.0-33.0); MEAN CORPUSCULAR HGB CONC 30.6 g/dl (32.0-37.0); MEAN CORPUSCULAR VOLUME 100.7 fl (82.0-101.0); MEAN PLATELET VOLUME 9.3 fl (7.4-10.4); MONOCYTES % 5.3 % (0.0-11.0); NEUTROPHIL # 15.1 10^3/ul (1.6-7.5); NEUTROPHILS % 81.1 % (39.0-77.0); NUCLEATED RED BLOOD CELLS% 0.1 /100WBC (0.0-0.0); PLATELET COUNT 629 10^3/UL (140-415); RED BLOOD COUNT 2.92 10^6/ul (4.20-5.40); RED CELL DISTRIBUTION WIDTH 18.6 % (11.5-14.5); WHITE BLOOD COUNT 18.6 10^3/ul (4.8-10.8)
[2017-02-07 16:54] LABS: POTASSIUM 5.5 mmol/L (3.5-5.1)
[2017-02-07 16:56] LABS: CREATININE 5.16 mg/dl (0.44-1.00)
[2017-02-07 16:57] LABS: CALCIUM 8.8 mg/dl (8.4-10.2); PHOSPHORUS 5.1 mg/dl (2.5-4.9)
[2017-02-07 16:58] LABS: MAGNESIUM 2.3 mg/dl (1.7-2.5)
[2017-02-07] MEDS ORDERED: BISACODYL 10 MG SUPP PR PRN (17:00)
[2017-02-07] MEDS: morphine 2 MG INJ IV PRN (19:08)
--- NOTE | 2017-02-07 20:55 | CONS ---
Date/Time of Note Date/Time of Note DATE: 02/07/17 TIME: 20:54 Consult Date/Type/Reason Admit Date/Time February 03, 2017 at 06:21 Initial Consult Date 02/05/17 Type of Consultation: Endovascular cardiology Objective Vital Signs Date Time Temp Pulse Resp B/P Pulse Ox O2 Delivery O2 Flow Rate FiO2 02/07/17 08:16 98.4 66 22 175/64 100 02/05/17 22:00 Nasal Cannula 2.0 Intake and Output 02/06/17 02/06/17 02/07/17 15:00 23:00 07:00 Intake Total 1310 ml 351.4 ml Output Total 2500 ml Balance -1190 ml 351.4 ml Results/Medications Result Diagram: 02/07/17 1550 02/07/17 1550 Results 24 hrs Laboratory Tests Test 02/06/17 21:35 02/07/17 08:08 02/07/17 11:54 02/07/17 12:26 Bedside Glucose 125 90 67 L 91 Test 02/07/17 13:59 02/07/17 15:50 02/07/17 16:14 Bedside Glucose 128 132 White Blood Count 18.6 H Red Blood Count 2.92 L Hemoglobin 9.0 L Hematocrit 29.4 L Mean Corpuscular Volume 100.7 Mean Corpuscular Hemoglobin 30.8 Mean Corpuscular Hemoglobin Concent 30.6 L Red Cell Distribution Width 18.6 H Platelet Count 629 H Mean Platelet Volume 9.3 Neutrophils % 81.1 H Lymphocytes % 9.7 L Monocytes % 5.3 Eosinophils % 2.3 Basophils % 0.3 Nucleated Red Blood Cells % 0.1 H Neutrophils # 15.1 H Lymphocytes # 1.8 Monocytes # 1.0 H Eosinophils # 0.4 Basophils # 0.1 Nucleated Red Blood Cells # 0.0 Sodium Level 136 Potassium Level 5.5 H Chloride Level 95 L Carbon Dioxide Level 25 Anion Gap 22 H Blood Urea Nitrogen 52 H Creatinine 5.16 H Glucose Level 109 Calcium Level 8.8 Phosphorus Level 5.1 H Magnesium Level 2.3 Medications Current Medications Lorazepam (Ativan) 0.5 mg Q6H PRN IV ANXIETY; Start 02/03/17 at 09:30 Acetaminophen (Tylenol Tab) 650 mg Q6H PRN PO PAIN LEVEL 1-3 OR FEVER; Start at 09:30 Acetaminophen/ Hydrocodone Bitart ([place] (5/325)) 1 tab Q6H PRN PO PAIN LEVEL 4 -6; Start 02/03/17 at 09:30 Morphine Sulfate (morphine) 2 mg Q4H PRN IV PAIN LEVEL 7-10 Last administered on 02/07/17 19:08; Admin Dose 2 MG; Start 02/03/17 at 09:30 Famotidine (Pepcid) 20 mg Q24H PO Last administered on 02/06/17 21:47; Admin Dose 20 MG; Start 02/03/17 at 21:00 Hydralazine HCl (Apresoline) 10 mg Q6H PRN IV SBP>160 Last administered on 02/05 02:50; Admin Dose 10 MG; Start 02/03/17 at 09:30 Diagnostic Test (Pha) (Accu-Chek) 1 ea 02 XX ; Start 02/04/17 at 02:00 Miscellaneous Information 1 ea NOTE XX ; Start 02/03/17 at 10:00 Glucose (Glutose) 15 gm Q15M PRN PO DECREASED GLUCOSE; Start 02/03/17 at 10:00 Glucose (Glutose) 22.5 gm Q15M PRN PO DECREASED GLUCOSE; Start 02/03/17 at 10: 00 Dextrose (D50w Syringe) 25 ml Q15M PRN IV DECREASED GLUCOSE; Start 02/03/17 at 10:00 Dextrose (D50w Syringe) 50 ml Q15M PRN IV DECREASED GLUCOSE; Start 02/03/17 at 10:00 Glucagon (Glucagen) 1 mg Q15M PRN IM DECREASED GLUCOSE; Start 02/03/17 at 10:00 Glucose (Glutose) 15 gm Q15M PRN BUCCAL DECREASED GLUCOSE; Start 02/03/17 at 10 :00 Atorvastatin Calcium (Lipitor) 10 mg HS PO Last administered on 02/06/17 21:47 ; Admin Dose 10 MG; Start 02/03/17 at 21:00 Losartan Potassium (Cozaar) 100 mg DAILY PO Last administered on 02/07/17 09: 09; Admin Dose 100 MG; Start 02/03/17 at 11:00 Multivit/Ca Carb/ B Cmplx/FA/Prenat (Zeynep-Emmanuel) 1 tab DAILY PO Last administered on 02/07/17 09:09; Admin Dose 1 TAB; Start 02/04/17 at 09:00 Isoniazid (Isoniazid) 300 mg DAILY PO Last administered on 02/07/17 09:09; Admin Dose 300 MG; Start 02/03/17 at 11:00 Hydralazine HCl (Apresoline) 25 mg TID PO Last administered on 02/07/17 14:03 ; Admin Dose 25 MG; Start 02/03/17 at 13:00 Polyethylene Glycol (Miralax) 17 gm BID PO Last administered on 02/07/17 09:09 ; Admin Dose 17 GM; Start 02/03/17 at 21:00 Hydroxyzine HCl (Atarax) 25 mg Q6H PRN PO ITCHING Last administered on 22:10; Admin Dose 25 MG; Start 02/03/17 at 11:00 Carvedilol (Coreg) 6.25 mg BID PO Last administered on 02/07/17 09:09; Admin Dose 6.25 MG; Start 02/03/17 at 21:00 Folic Acid (Folic Acid) 1 mg DAILY PO Last administered on 02/07/17 09:09; Admin Dose 1 MG; Start 02/04/17 at 09:00 Fluocinonide (Lidex E 0.05%/ Emoll Cr) APPLY SPARINGLY bid to... BID TOP Last administered on 02/07/17 09:12; Admin Dose 1 APPLIC; Start 02/03/17 at 17:30 Insulin Glargine (Lantus) 15 unit DAILY@20 SC Last administered on 02/06/17 21 :41; Admin Dose 15 UNIT; Start 02/04/17 at 20:00 Heparin Sodium (Porcine) (Heparin (5000 Units/0.5 ml)) 5,000 unit BID SC Last administered on 02/07/17 09:15; Admin Dose 5,000 UNIT; Start 02/04/17 at 13:00 Amikacin Sulfate (Amikacin Iv Per Pharmacy) AMIKACIN PER PHARMACY NOTE XX ; Start 02/04/17 at 18:00 Acetaminophen (Tylenol Tab) 500 mg Q4H PRN PO PAIN AND OR ELEVATED TEMP Last administered on 02/06/17 22:10; Admin Dose 500 MG; Start 02/04/17 at 20:00 Bisacodyl (Dulcolax) 5 mg DAILY PO Last administered on 02/07/17 09:09; Admin Dose 5 MG; Start 02/04/17 at 20:00 Clonidine (Catapres) 0.1 mg BID PO Last administered on 02/07/17 09:08; Admin Dose 0.1 MG; Start 02/04/17 at 21:00 Clopidogrel Bisulfate (plaVIX) 75 mg DAILY PO Last administered on 02/07/17 09 :09; Admin Dose 75 MG; Start 02/05/17 at 09:00 Docusate Sodium (Colace) 100 mg BID PO Last administered on 02/07/17 09:08; Admin Dose 100 MG; Start 02/04/17 at 21:00 Hydroxyzine HCl (Atarax) 10 mg Q6H PRN PO ITCHING; Start 02/04/17 at 20:00 Pantoprazole (Protonix Tab) 40 mg DAILY@06 PO Last administered on 02/07/17 05 :41; Admin Dose 40 MG; Start 02/05/17 at 06:00 Pyridoxine HCl (Vitamin B6) 50 mg DAILY PO Last administered on 02/07/17 09:09 ; Admin Dose 50 MG; Start 02/04/17 at 20:00 Silver Sulfadiazine (Thermazene 1% 25 Gm) 1 applic BID TOP Last administered on 02/06/17 21:50; Admin Dose 1 APPLIC; Start 02/05/17 at 09:00 Mupirocin (Bactroban) 1 applic BID TOP Last administered on 02/07/17 09:11; Admin Dose 1 APPLIC; Start 02/05/17 at 21:00; Stop 02/12/17 at 09:01 Bisacodyl (Dulcolax Supp) 10 mg DAILY PRN [place] CONSTIPATION; Start 02/07/17 at 17 :00 Assessment/Plan Chief Complaint/Hosp Course Patient is 66 year old F with PMH of HTn, HLD, DM, ESRD on HD, Right leg amputation, Left leg DM ulcer non healing, US of art she found to have bilateral monophasic, likely severe pAD and infected ulcer. She denies any CP or SOB. Problems: Additional Assessment/Plan Pt has severe pAD she refused angio she will benifit with revasc f/u RAGHAVENDRA LANGSTON MD February 07, 2017 20:55
[2017-02-07] MEDS: INSULIN GLARGINE [LANtus] 3 ML PEN SC SCH (21:04)
[2017-02-07] MEDS: hydrOXYzine HCL 25 MG TAB PO PRN (21:09)
[2017-02-07] MEDS: FAMOTIDINE 20 MG TAB PO SCH (21:09)
[2017-02-07] MEDS: ATORVASTATIN 10 MG TAB PO SCH (21:09)
[2017-02-07 21:25] VITALS: BP 187/80; RESP 16
[2017-02-07 22:00] VITALS: BP 170/71; PULSE 70
[2017-02-07] MEDS: hydrALAzine 20 MG INJ IV PRN (22:15)
[2017-02-07 22:45] VITALS: BP 135/65; PULSE 67
== END 2017-02-07 22:56 | disposition short-term general hospital (02) | DRG 853 ==
LOC: E/R 23:06 → MS4 02-03 06:21 → PP2 02-04 16:15
PROVIDERS: ADMIT Family Medicine; ATTEND Family Medicine
PROC: 30233N1 Transfusion of Nonautologous Red Blood Cells into Peripheral Vein, Percutaneous Approach (ICD-10-PCS; 2017-02-03)
PROC: 5A1D60Z (ICD-10-PCS; 2017-02-04)
PROC: 0KBW0ZZ Excision of Left Foot Muscle, Open Approach (ICD-10-PCS; principal; 2017-02-06)
DX: A41.9 Sepsis, unspecified organism (principal); N18.6 End stage renal disease; I13.2 Hypertensive heart and chronic kidney disease with heart failure and with stage 5 chronic kidney disease, or end stage renal disease; L89.150 Pressure ulcer of sacral region, unstageable; L89.322 Pressure ulcer of left buttock, stage 2; I96 Gangrene, not elsewhere classified; G92 Toxic encephalopathy; Z68.41 Body mass index [BMI] 40.0-44.9, adult; N39.0 Urinary tract infection, site not specified; L97.429 Non-pressure chronic ulcer of left heel and midfoot with unspecified severity; L03.116 Cellulitis of left lower limb; E11.22 Type 2 diabetes mellitus with diabetic chronic kidney disease; E11.65 Type 2 diabetes mellitus with hyperglycemia; I50.9 Heart failure, unspecified; Z99.2 Dependence on renal dialysis; Z79.4 Long term (current) use of insulin; E66.01 Morbid (severe) obesity due to excess calories; E11.40 Type 2 diabetes mellitus with diabetic neuropathy, unspecified; H53.8 Other visual disturbances; Z74.01 Bed confinement status; B35.1 Tinea unguium; Z89.511 Acquired absence of right leg below knee; E11.621 Type 2 diabetes mellitus with foot ulcer; L89.620 Pressure ulcer of left heel, unstageable; Z22.322 Carrier or suspected carrier of Methicillin resistant Staphylococcus aureus; B96.20 Unspecified Escherichia coli [E. coli] as the cause of diseases classified elsewhere; Z16.24 Resistance to multiple antibiotics; R21 Rash and other nonspecific skin eruption; I73.9 Peripheral vascular disease, unspecified
CPT/HCPCS: 36430; 36600; 70450; 71010; 74176; 80048; 80053; 80202; 81003; 82306; 82550; 82553; 82652; 82728; 82803; 82962; 83036; 83540; 83605; 83735; 83880; 84100; 84439; 84443; 84466; 84484; 85025; 85045; 85610; 85651; 85730; 86850; 86900; 86901; 86920; 87040; 87070; 87081; 90935; 93005; 93306; 93922; 96365; 96366; 96368; 96375; J0278; J0360; J0692; J1644; J1815; J2270; J2916; J3370; J7030; J7040; P9016; P9612; Q4081